=== PATIENT | male | born 1980 | race Caucasian/White ===

== ENCOUNTER 2020-05-31 07:54 | Outpatient (REF) | payer OTHER, SELFPAY ==
[2020-05-31 08:46] LABS: COVID-19 Test Negative (Negative)
== END 2020-05-31 07:55 | disposition home or self-care (01) ==
LOC: HO.LAB 07:54
PROVIDERS: Visit Provider Internal Medicine
DX: Z20.822 Contact with and (suspected) exposure to COVID-19 (principal)
CPT/HCPCS: 36415; 87635; C9803

== ENCOUNTER 2020-06-08 10:24 | Emergency (ER) | payer OTHER, SELFPAY ==
[2020-06-08 10:51] VITALS: BP 147/91; PULSE 92; RESP 16; TEMP 36.9; O2SAT 97; BMI 23.3
--- NOTE | 2020-06-08 11:01 | ED_ITS ---
HPI - General Adult General Chief complaint: General Medical Stated complaint: covid exposed - fever Time Seen by Provider: 06/08/20 10:36 Source: patient Mode of arrival: ambulatory Limitations: no limitations History of Present Illness HPI narrative: 39 yo male with past medical history of CHELE, sinusitis, HTN, asthma here with complaints of sinus pressure/pain, nasal drainage which is yellow/green, fever with max temp 101F, right upper dental pain, headache x 3 days. No cough, shortness breath, chest pain, abdominal pain, vomiting or diarrhea. Both parents at home are COVID positive Related Data Home Medications Medication Instructions Recorded Confirmed albuterol sulfate 90 mcg/actuation 2 puff INHALATION Q6H PRN 02/16/20 03/24/20 aerosol inhaler Previous Rx's Medication Instructions Recorded acetaminophen 325 mg capsule 650 mg PO Q6H PRN 15 Days #60 cap 03/24/20 amoxicillin 875 mg-potassium 1 tab PO Q12H 10 Days #20 tab 03/24/20 clavulanate 125 mg tablet fexofenadine 60 mg tablet 60 mg PO BID PRN 30 Days #60 tab 03/24/20 fluticasone propionate 50 1 spray INTRANASAL DAILY 30 Days 03/24/20 mcg/actuation nasal #16 g spray,suspension citalopram 20 mg tablet 20 mg PO DAILY 30 Days #30 tab 04/13/20 amitriptyline 50 mg tablet 50 mg PO DAILY #90 cap 04/17/20 lorazepam 1 mg tablet 1 mg PO DAILY PRN 14 Days #14 tab 04/17/20 amlodipine 5 mg tablet 5 mg PO DAILY 90 Days #90 tab 05/26/20 albuterol sulfate 90 mcg/actuation 2 puff PO Q6H #8.5 cap 05/29/20 aerosol inhaler azithromycin See Rx Instructions .ROUTE 06/08/20 .COMPLEX #6 tab Allergies Allergy/AdvReac Type Severity Reaction Status Date / Time ciprofloxacin [From CIPRO] Allergy Severe ANXIETY, Unverified 11/04/19 15:22 INSOMNIA, CONSTIPATION, panic attacks sumatriptan [From IMITREX] Allergy Severe HALLUCINATIONS, Unverified 11/04/19 1 5:22 BACK TIGHTENS Review of Systems Review of Systems: Yes all other systems are reviewed and are negative Constitutional: Constitutional: Reports no additional constitutional complaints, Denies body ache(s), Denies chills, Reports fever(s), Reports headache(s) and Denies weakness Eyes: Eyes: Reports no additional eye complaints and Denies change in vision ENT: Reports system reviewed and no additional complaints, except as documented, Denies dizziness, Reports headache(s), Reports mouth pain, Denies nasal congestion, Reports nasal discharge, Denies neck pain, Reports sinus pain and Reports sinus pressure Cardiovascular: Cardiovascular: Reports no additional cardiovascular complaints, Denies chest pain, Denies leg edema and Denies dyspnea Respiratory: Respiratory: Reports no additional respiratory complaints, Denies cough and Denies dyspnea Gastrointestinal: Gastrointestinal: Reports no additional gastrointestinal complaints, Denies abdominal pain, Denies diarrhea, Denies nausea and Denies vomiting Genitourinary: Genitourinary: Denies urinary incontinence Musculoskeletal: Musculoskeletal: Reports no additional musculoskeletal complaints, Denies back pain, Denies arthralgias, Denies joint swelling, Denies neck pain, Denies numbness and Denies tingling Integumentary/Breasts: Skin/Breast: Reports system reviewed and no additional complaints, except as docu and Denies rash Neurologic: Reports system reviewed and no additional complaints, except as documented, Denies Abnormal speech present, Denies dizziness, Reports headache(s), Denies numbness, Denies tingling and Denies weakness PMFSH Past Medical History Attestation statement: The following information was validated with the patient. Source: old records reviewed and nursing notes reviewed Medical History Sinusitis Family History Family History Mother Asthma Father No problems noted. Social History Social History Alcohol intake: never Smoking Status: Never smoker Use of substances other than those prescribed or required for medical reasons: No Advance Directives: Yes Advance Directives Information Provided: No Advance Directives on File: No Physical Exam Vital Signs: Vital Signs: Last Vital Signs Temp 98.5 F 06/08/20 10:51 Pulse 92 06/08/20 10:51 Resp 16 06/08/20 10:51 BP 147/91 H 06/08/20 10:51 Pulse Ox 97 06/08/20 10:51 Body Mass Index 23.3 Const: General: cooperative, healthy appearing, comfortable and no acute distress Orientation/consciousness: patient oriented x3 Limitations: no limitations HENMT: Head: Yes normal to inspection Ears: hearing grossly normal bilaterally and TM's normal bilaterally General nose exam: Normal external nose present Face and sinus: Yes normal facial exam Mouth: Normal oral and palatal mucosa present Teeth and gingiva: other (Extensive dental caries. There is no abscess/fluctuance/induration noted) Throat: Yes posterior oropharynx normal Eyes: General: appearance normal, both eyes and all related structures Pupils: Equal, round and reactive pupils present Neck: Neck: Yes normal visual inspection, Yes full ROM, Yes no lymphadenopathy and Yes no meningeal signs Chest: Chest palpation & inspection: normal inspection of the chest Resp: Effort & Inspection: normal respiratory effort Auscultation: clear to auscultation bilaterally Cardio: Rate: regular rate Rhythm: regular rhythm Peripheral pulses: Peripheral pulses 2+ throughout GI: Inspection: Yes normal to inspection Palpation (GI): Soft to palpation and nontender Auscultation: normal bowel sounds Back/Spine/Pelvis: Thoracic/Lumbar Spine: thoracic and lumbar spine normal to inspection Skin: General skin exam: no rashes or lesions noted Neuro: General: patient oriented x3, no meningeal signs, no focal motor deficits and normal sensation to monofilament Cranial nerves: Yes Equal, round and reactive pupils present Cognition (Neuro): normal cognition Speech: No Abnormal speech present Gait exam (Neuro): Normal gait present Motor exam (neuro): 5/5 motor strength present throughout Extrem: General: Yes normal to inspection, Yes no pedal edema and Yes no calf tenderness Course Course Course Narrative: 39-year-old male here with complaints of fever, sinus pressure and pain, nasal congestion, toothache, headache times several days. No known COVID exposure at home. Will need COVID testing 1130-. COVID positive. hemodynamically stable. Afebrile well-appearing here. Stable saturations greater than 98%. Exam is consistent with a sinusitis so will treat with course of antibiotics. Reviewed worrisome signs and symptoms of when to return to the emergency department. Comfortable discharge home. Medical Decision Making Medical Records Medical records reviewed: Yes I reviewed the patient's medical records. Lab Data Lab results reviewed: Yes I reviewed the patient's lab results. Labs: Lab Results 06/08/20 Range/Units 11:10 COVID-19 ([facility]) Positive A (Negative) COVID-19 Clin Com See Note Discharge Plan Discharge Clinical Impression: COVID-19, Sinusitis Patient Disposition: Home, Self-Care Instructions: Sinusitis (ED), COVID-19 (Coronavirus Disease 2019) (ED) Additional Instructions: Increase fluids, rest You tested positive for COVID-19. Per the cdc you need to quarantine for 10 days and your symptoms must be resolved for 24 hours before leaving her quarantine Take Motrin or Tylenol if able as needed for pain or fever Prescriptions: New azithromycin 250 mg tablet See Rx Instructions .ROUTE .COMPLEX Qty: 6 RF: 0 No Action albuterol sulfate 90 mcg/actuation HFA aerosol inhaler 2 puff inhalation Q6H PRNRF: 0 citalopram 20 mg tablet 20 mg PO DAILY 30 Days Qty: 30 RF: 0 lorazepam 1 mg tablet 1 mg PO DAILY PRN (Reason: anxiety) 14 Days Qty: 14 RF: 0 amitriptyline 50 mg tablet 50 mg PO DAILY Qty: 90 RF: 1 amlodipine 5 mg tablet 5 mg PO DAILY 90 Days Qty: 90 RF: 1 albuterol sulfate 90 mcg/actuation HFA aerosol inhaler 2 puff PO Q6H Qty: 8.5 RF: 3 fexofenadine [Brittni Allergy] 60 mg tablet 60 mg PO BID PRN (Reason: allergic symptoms) 30 Days Qty: 60 RF: 0 amoxicillin-pot clavulanate [Augmentin] 875-125 mg tablet 1 tab PO Q12H 10 Days Qty: 20 RF: 0 acetaminophen 325 mg capsule 650 mg PO Q6H PRN (Reason: fever or pain) 15 Days Qty: 60 RF: 0 fluticasone propionate 50 mcg/actuation spray,suspension 1 spray intranasal DAILY 30 Days Qty: 16 RF: 0 Referrals: Mckenna Subramanian NP [Primary Care Provider] - 2 days Interventions: ED Discharge Assessment Last Done: 06/08/20 11:43 Discharge Date/Time: 06/08/20 11:44
[2020-06-08 11:32] LABS: COVID-19 Test Positive (Negative)
== END 2020-06-08 11:44 | disposition home or self-care (01) ==
PROVIDERS: Nurse Practitioner Family; Emergency Provider Emergency Medicine; PCP Nurse Practitioner Family
DX: U07.1 COVID-19 (principal)
CPT/HCPCS: 36415; 87635; 99283

== ENCOUNTER 2020-12-01 18:21 | Outpatient (REF) | payer OTHER, SELFPAY ==
[2020-12-01 19:08] LABS: Influenza A PCR NEGATIVE (Negative); Influenza B PCR NEGATIVE (Negative); Resp Syncy Virus RNA Qual PCR NEGATIVE (Negative); SARS COV2 PCR INHOUSE NEGATIVE (Negative)
== END 2020-12-01 18:22 | disposition home or self-care (01) ==
LOC: HO.LNP 18:21
PROVIDERS: Visit Provider Family Medicine
DX: R09.89 Other specified symptoms and signs involving the circulatory and respiratory systems (principal); J32.9 Chronic sinusitis, unspecified; Z20.822 Contact with and (suspected) exposure to COVID-19
CPT/HCPCS: 0241U

== ENCOUNTER 2021-04-05 07:20 | Outpatient (REF) | payer OTHER, SELFPAY ==
--- NOTE | ~2021-04-05 | XR_ITS ---
EXAMINATION: XR HIP, RIGHT CLINICAL INFORMATION: Pain in the right hip COMPARISON: None TECHNIQUE: Two views of the right hip. FINDINGS: Alignment is normal. The femoral head is well-positioned within the intact acetabulum. The hip joint space is maintained. No evidence of proximal femoral fracture or osteonecrosis. Soft tissues are unremarkable. The visualized pelvic bones and visualized sacral joints are unremarkable. XR/XR hip RT min 2V IMPRESSION: Normal radiographic evaluation of the right hip.
[2021-04-05 07:41] LABS: MANUAL DIFF FLAG NO
[2021-04-05 08:51] LABS: Basophils Absolute Auto 0.1 X10*3/uL (0.0-0.2); Basophils Percent Auto 0.6 % (0-2); Eosinophils Absolute Auto 0.4 X10*3/uL (0.0-0.4); Eosinophils Percent Auto 4.6 % (0-4); Hemoglobin 15.5 g/dl (14.0-18.0); Imm Gran Abs Auto 0.02 X10*3/uL (0.00-0.03); Imm Gran Pct Auto 0.2 % (0.0-0.4); Lymphocytes Percent Auto 42.1 % (20-40); Mean Corpuscular Hemoglobin 30.8 pg (27.0-33.0); Mean Corpuscular Volume 85.5 fL (80.0-98.0); Monocytes Absolute Auto 0.6 X10*3/uL (0.1-1.2); Monocytes Percent Auto 5.9 % (2-11); Neutrophils Absolute Auto 4.5 x10*3/uL (2.0-8.3); Neutrophils Percent Auto 46.6 % (45-73); Platelet Count 312 X10*3/uL (160-400); Red Blood Count 5.03 X10*6/uL (4.60-5.80); Red Cell Distribution Width 11.8 % (11.0-16.0); White Blood Count 9.6 X10*3/uL (4.8-10.8)
[2021-04-05 08:56] LABS: Anion Gap 12 (12-20); Bilirubin Total 0.7 mg/dL (0.0-1.0); Blood Urea Nitrogen 13 mg/dL (9-16); Calcium 9.8 mg/dL (8.4-10.2); Carbon Dioxide 25 mmol/L (22-29); Chloride 104 mmol/L (96-108); Estimated Glomerular Filt Rate > 60; Glucose Fasting 92 mg/dL (60-99); Potassium 4.1 mmol/L (3.3-5.1); Sodium 137 mmol/L (135-145)
[2021-04-05 08:57] LABS: Alanine Aminotransferase 24 U/L (0-40); Albumin Level 4.5 g/dL (3.5-5.0); Alkaline Phosphatase 68 U/L (39-117); Aspartate Amino Transferase 20 U/L (5-37); Cholesterol 235 mg/dL; HDL Cholesterol 40 mg/dL; LDL Cholesterol Calculated 163 mg/dl; Total Protein 7.5 g/dL (6.5-8.0); Triglycerides 160 mg/dL
[2021-04-05 09:11] LABS: Thyroid Stimulating Hormone 1.93 uIU/mL (0.32-4.0)
[2021-04-05 09:19] LABS: TSH reflex Free T4 1.98 uIU/mL (0.32-4.0)
[2021-04-05 10:13] LABS: Appearance Urine CLEAR; Color Urine YELLOW; Glucose Urine UA NEG (NEG); Leukocyte Esterase Urine NEG (NEG); Nitrite Urine NEG (NEG); Specific Gravity - Urine 1.015 (1.005-1.025); Urine Blood NEG (NEG); Urine Ketones NEG (NEG); Urine Protein NEG (NEG-TRACE)
[2021-04-05 10:33] LABS: Microalbum/Creatinine Ratio Ur 7.3 ug/mg cr
== END 2021-04-05 07:21 | disposition home or self-care (01) ==
LOC: HO.XRAY 07:20
PROVIDERS: Internal Medicine; PCP Family Medicine; Visit Provider Family Medicine
DX: Z00.00 Encounter for general adult medical examination without abnormal findings (principal); I10 Essential (primary) hypertension; E03.9 Hypothyroidism, unspecified; M25.551 Pain in right hip
CPT/HCPCS: 36415; 73502; 80053; 80061; 81003; 82043; 84443; 85025

== ENCOUNTER 2021-05-22 14:00 | Outpatient (RCR) | payer OTHER, SELFPAY ==
--- NOTE | 2021-04-11 15:17 | MHC.PT.EP ---
[facility] [place] Office [place] Office [place] Office [address] Kareem Foster [address] [phone] F: [phone] F: [phone] F: [phone] F: [phone] Physical Therapy Plan of Care Date of Evaluation: Date of Surgery: NA Diagnosis: Assessment: Pt IS 40 YO M REFERRED TO PT FROM DR ROUSSEAU WITH R HIP PAIN S/P FALL ON ICE 3 WKS AGO. Pt REPORTS HX OF R HIP DISLOCATION IN 2016 WITH PT IN 2019 WITH RELIEF. Pt REPORTS LIMITED ADLS BECAUSE OF PAIN. PRESENTS TO PT AT THIS TIME WITH TIGHT HIP/LE MMS AND C/O SCIATIC TYPE SXS. SHOULD BENEFIT FROM PT TO ADDRESS THESE ISSUES AND HELP INCREASE STABILITY AT CORE AND HIPS. Frequency and Duration: The patient will be seen 2X/WK X 4 WKS Short Term Goals: 1. I HEP WITH DC EX PLAN 2. INCREASED AWARENESS POSTURE AND HIP CARE 3. CENTRALIZE SXS (LESS SCIATICA TYPE SXS R LE) Group Home Goals: 1. INCREASED HS FLEXIBLITY 5 DEGREES B 2. DECREASED DISCOMFORT WITH R HIP IR/ER 3. INCREASED ADLS WITH DECREASED R HIP PAIN AT LEAST 50% 4. IMPROVED LEFI (59/80 AT SOC) Treatment Plan: Modalities to reduce pain, spasms and effusion. Manual therapy to restore motion and function. Therapeutic exercise to improve strength and flexibility. Neuromuscular re-education for posture and balance. Therapeutic activities to return to functional activities of daily living. Electronically signed by: ESPERANZA MORTENSEN PT Please sign and return to therapist. Thank you for your referral.
--- NOTE | 2021-06-08 14:03 | MHC.PT.DC ---
[facility] [place] Office [place] Office [place] Office [address] Kareem Foster [address] [phone] F: [phone] F: [phone] F: [phone] F: [phone] Physical Therapy Discharge Report Diagnosis: Date of Surgery: NA Date of Evaluation: 04/11/21 Date of Discharge: 06/08/21 Treatments to Date: 5 Cancellations to Date: No Shows to Date: Discharge Status: Improved Function Independent with HEP Patient Elected to Stop Discharge Summary: Pt LAST SEEN ON 05/22/21 WITH ASSESSMENT THAT DAY PER MARIANA NARVAEZ PT, DPT Resolution of R sciatica series with implement prone extension series, pt expressing has been completing HEP a few times daily . Pt HAS BEGUN PT FOR CERVICALGIA. WILL DC THIS RECORD TO CONTINUE TO DOCUMENT FOR CERVICALGIA TREATMENT Electronically signed by: ESPERANZA MORTENSEN PT Please sign and return to therapist. Thank you for your referral.
== END 2021-06-08 14:05 | disposition home or self-care (01) ==
LOC: HO.PTWFD 14:00
PROVIDERS: PCP Family Medicine; Visit Provider Family Medicine
DX: M25.551 Pain in right hip (principal)
CPT/HCPCS: 97110; 97161; 97535

== ENCOUNTER 2021-08-01 14:00 | Outpatient (RCR) | payer OTHER, SELFPAY ==
[2021-05-31 13:51] VITALS: BP 120/80; PULSE 67; O2SAT 97
== END 2021-09-06 15:16 | disposition home or self-care (01) ==
LOC: HO.PTWFD 14:00
PROVIDERS: PCP Family Medicine; Visit Provider Family Medicine
DX: M54.2 Cervicalgia (principal)
CPT/HCPCS: 97014; 97110; 97140; 97161; 97535

== ENCOUNTER 2021-08-09 09:57 | Emergency (ER) | payer OTHER, SELFPAY ==
[2021-08-09 10:19] VITALS: BP 149/94; PULSE 92; RESP 16; TEMP 36.7; O2SAT 99; BMI 26.6
--- NOTE | 2021-08-09 11:00 | ED_ITS ---
HPI - General Adult General Chief complaint: General Medical Stated complaint: possible popped hemroid, rectal bleeding Time Seen by Provider: 08/09/21 10:57 Source: patient Mode of arrival: ambulatory Limitations: no limitations History of Present Illness HPI narrative: 40 y/o male with history of HTN, HLD, asthma, anxiety, migraines, & depression who presents to the ER with constipation and concern for hemorrhoids. He has been suffering from constipation for years. He reports for the last few days he has had to strain to have a bowel movement and last night tried to manually disimpact himself because he could feel that the stool was there to pass. He used a gloved finger to remove stool and he noticed there was mucusy blood on the glove. He also reported some blood when he wiped. No further bleeding since. He has intermittent abdominal cramping when he has the sensation to have a bowel movement. No nausea, vomiting or fevers. MD complaint: constipation & hemorrhoids Onset (ago): day(s) Location: abdomen and buttocks Radiation: non-radiation Severity: moderate Pain Consistency: intermittent Relieving factors: none Exacerbating factors: other (bowel movement) Associated symptoms: denies other symptoms Treatments prior to arrival: none Related Data Home Medications Medication Instructions Recorded Confirmed acetaminophen 325 mg tablet 0 mg PO 03/21/21 08/06/21 escitalopram oxalate 10 mg tablet 10 mg PO DAILY 03/21/21 08/06/21 ibuprofen 800 mg tablet 800 mg PO TID 03/21/21 08/06/21 clonidine HCl 0.1 mg tablet 0.1 mg PO .prn 05/07/21 08/06/21 quetiapine 50 mg tablet (Seroquel) 50 mg PO BEDTIME 05/07/21 08/06/21 lorazepam 0.5 mg tablet 0.5 mg PO BEDTIME 08/06/21 08/06/21 quetiapine 300 mg tablet,extended 300 mg PO BEDTIME 08/06/21 08/06/21 release 24 hr Previous Rx's Medication Instructions Recorded acetaminophen 325 mg capsule 650 mg PO Q6H PRN fever or pain 15 03/24/20 days #60 caps lorazepam 1 mg tablet 1 mg PO DAILY PRN anxiety 14 days 03/22/21 #14 tabs albuterol sulfate 90 mcg/actuation 2 puff PO Q6H #8.5 grams 05/07/21 aerosol inhaler azithromycin 250 mg tablet See Rx Instructions PO .COMPLEX 5 05/07/21 (Zithromax Z-Francisco) days #6 tabs fexofenadine 60 mg tablet (Brittni 60 mg PO BID allergic symptoms 90 05/07/21 Allergy) days #180 tabs fluticasone 250 mcg-salmeterol 50 1 inh inhalation Q12H 30 days #60 05/07/21 mcg/dose blistr powdr for ea inhalation (Advair Diskus) amlodipine 5 mg tablet 5 mg PO DAILY 90 days #90 tabs 05/16/21 fluticasone propionate 50 1 spray intranasal DAILY 30 days 05/16/21 mcg/actuation nasal #16 grams spray,suspension amitriptyline 75 mg tablet 75 mg PO BEDTIME #90 tabs 08/06/21 Allergies Allergy/AdvReac Type Severity Reaction Status Date / Time ciprofloxacin [From CIPRO] Allergy Severe ANXIETY, Verified 08/06/21 14:13 INSOMNIA, CONSTIPATION, panic attacks sumatriptan [From IMITREX] Allergy Severe HALLUCINATIONS, Verified 08/06/21 14:13 BACK TIGHTENS Review of Systems Review of Systems: Constitutional: No Fever, No Chills ENT/Mouth: No sore throat, No Rhinorrhea, No Swallowing Difficulty Cardiovascular: No Chest Pain, No SOB, No Orthopnea, No Edema Respiratory: No Cough, No Sputum, No Wheezing, No dyspnea Gastrointestinal: No Nausea, No Vomiting, No Diarrhea, No abdominal Pain, No Hematochezia, No Melena, +constipation Genitourinary: No Dysuria, No Urinary Frequency, No Hematuria Musculoskeletal: No joint pain, No Myalgias Skin: No Skin Lesions, No rash Neuro: No Weakness, No Numbness, No Dizziness, No Headache Psych: + Anxiety/Panic, No Depression Heme/Lymph: No Bruising, No Lymphadenopathy Endocrine: No Polyuria, No Polydipsia PMFSH Past Medical History Medical History Anxiety Depression Sinusitis Surgical History No pertinent past surgical history Family History Family History Mother Asthma Father No problems noted. Social History Social History Housing: House Alcohol intake: current Alcohol intake frequency: a few times a month Patient Tobacco Use Status: Never used Tobacco e-Cigarette/Vaping Use: Never Used Second Hand Smoke Exposure: No Advance Directives: No Advance Directives Information Provided: No service: No Current occupational status: disabled Current occupational exposures/hazards: No Cognitive needs: No Hearing needs: No Vision needs: No Physical Exam ED Vital Signs: Vital Signs - 24 hr 08/09/21 10:19 Temperature 98.1 F Pulse Rate 92 Respiratory Rate 16 Blood Pressure 149/94 H Pulse Oximetry 99 Oxygen Delivery Method Room Air BMI result Body Mass Index 26.6 Appearance: Alert. Oriented X3. No acute distress. Eyes: Pupils equal, round and reactive to light. ENT: Pharynx normal. Neck: Normal inspection. Neck supple. CVS: Normal heart rate and rhythm. Pulses normal. Respiratory: No respiratory distress. Breath sounds normal. Abdomen: Soft and nontender. +BS x4 Rectal: moderate sized, nontender, nonthrombosed external hemorrhoid. normal rectal tone. no stool in rectal vault. no palpable internal hemorrhoids Skin: Skin warm and dry. Normal skin color. Normal skin turgor. No rashes. Extremities: No lower extremity edema. Neuro: Oriented X 3. No motor deficit. No sensory deficit. Course Course Course Narrative: 40 year old male presents to the ER with acute on chronic constipation with non- bleeding hemorrhoids. Exam is benign, abd is soft & non-tender. No clinical suspicion for obstruction. No stool in rectal vault and hemorrhoid is nonthrombosed and not bleeding. Will treat with [place] dulcolax now, Mg++ citrate at home and follow up with GI. Stable for d/c home, patient agrees with plan and return precautions were discussed. Discharge Plan Discharge Clinical Impression: Constipation, Hemorrhoids Patient Disposition: Home, Self-Care Instructions: Constipation (ED), Hemorrhoids (ED), High Fiber Diet (ED) Additional Instructions: Drink the entire bottle of magnesium citrate when you get home. Recommend also starting the following bowel regimen (all found over the counter): 1. colace 100 mg two times per day 2. miralax 17 gm once per day, mix powder in any liquid 3. dulcolax suppositories as needed daily 4. preparation H topically on the hemorrhoid Recommend following up with GI doctor for further evaluation and treatment If you develop large amounts of rectal bleeding, abdominal pain, vomiting, fevers or any other concerning symptoms call 911 or come back to the ER for further evaluation. Prescriptions: No Action lorazepam 1 mg tablet 1 mg PO DAILY PRN (Reason: anxiety) 14 Days Qty: 14 0RF fluticasone propionate 50 mcg/actuation spray,suspension 1 spray intranasal DAILY 30 Days Qty: 16 3RF Rx Instructions: administer into each nostril amlodipine 5 mg tablet 5 mg PO DAILY 90 Days Qty: 90 1RF acetaminophen 325 mg capsule 650 mg PO Q6H PRN (Reason: fever or pain) 15 Days Qty: 60 0RF escitalopram oxalate 10 mg tablet 10 mg PO DAILY ibuprofen 800 mg tablet 800 mg PO TID acetaminophen 325 mg tablet 0 mg PO clonidine HCl 0.1 mg tablet 0.1 mg PO .prn quetiapine [Seroquel] 50 mg tablet 50 mg PO BEDTIME azithromycin [Zithromax Z-Francisco] 250 mg tablet See Rx Instructions PO .COMPLEX 5 Days Qty: 6 0RF Rx Instructions: take 500 mg today (day 1), then 250 mg for 4 days (days 2-5) PO fexofenadine [Brittni Allergy] 60 mg tablet 60 mg PO BID 90 Days Qty: 180 1RF fluticasone propion-salmeterol [Advair Diskus] 250-50 mcg/dose blister with device 1 inh inhalation Q12H 30 Days Qty: 60 4RF albuterol sulfate 90 mcg/actuation HFA aerosol inhaler 2 puff PO Q6H Qty: 8.5 3RF lorazepam 0.5 mg tablet 0.5 mg PO BEDTIME quetiapine 300 mg tablet extended release 24 hr 300 mg PO BEDTIME amitriptyline 75 mg tablet 75 mg PO BEDTIME Qty: 90 1RF Referrals: Lina Reyes MD [Physician] - (constipation)
[2021-08-09] MEDS: Docusate Sodium 100 MG CAPSULE PO (11:38)
[2021-08-09] MEDS: bisacodyL 10 MG SUPP.RECT PR (11:38)
[2021-08-09] MEDS: Magnesium Citrate 300 ML SOLUTION PO (11:38)
== END 2021-08-09 11:40 | disposition home or self-care (01) ==
PROVIDERS: Emergency Provider Student in an Organized Health Care Education/Training Program; PCP Family Medicine
DX: K59.09 Other constipation (principal); K64.9 Unspecified hemorrhoids; I10 Essential (primary) hypertension; J45.909 Unspecified asthma, uncomplicated
CPT/HCPCS: 99282; 99283

== ENCOUNTER 2021-10-18 08:47 | Outpatient (REF) | payer OTHER, SELFPAY ==
[2021-10-18 12:18] LABS: Cholesterol 238 mg/dL; HDL Cholesterol 43 mg/dL; LDL Cholesterol Calculated 150 mg/dl; Triglycerides 228 mg/dL
== END 2021-10-18 08:48 | disposition home or self-care (01) ==
LOC: HO.WFDLDS 08:47
PROVIDERS: Visit Provider Family Medicine
DX: Z00.00 Encounter for general adult medical examination without abnormal findings (principal); M54.2 Cervicalgia
CPT/HCPCS: 36415; 80061

== ENCOUNTER → 2021-12-04 14:19 | Outpatient (BNVA) | payer OTHER, SELFPAY | PROVIDERS: PCP Family Medicine; Referring Provider Family Medicine; Visit Provider Physician Assistant | DX: K59.09 Other constipation (principal); K64.9 Unspecified hemorrhoids | CPT/HCPCS: 99202; 99212 ==

== ENCOUNTER → 2022-01-29 14:21 | Outpatient (BNVA) | payer OTHER, SELFPAY | PROVIDERS: PCP Family Medicine; Visit Provider Physician Assistant | DX: K64.9 Unspecified hemorrhoids (principal); K59.09 Other constipation | CPT/HCPCS: 99212 ==

== ENCOUNTER → 2022-02-27 12:47 | Outpatient (BNVA) | payer OTHER, SELFPAY | PROVIDERS: PCP Family Medicine; Referring Provider Physician Assistant; Visit Provider Surgery | DX: K64.8 Other hemorrhoids (principal) | CPT/HCPCS: 46600; 99202 ==

== ENCOUNTER 2022-09-10 10:57 | Outpatient (REF) | payer OTHER, SELFPAY ==
[2022-09-10 20:11] LABS: Cholesterol 230 mg/dL; HDL Cholesterol 40 mg/dL; LDL Cholesterol Calculated 144 mg/dl; Triglycerides 230 mg/dL
== END 2022-09-10 10:58 | disposition home or self-care (01) ==
LOC: HO.WFDLDS 10:57
PROVIDERS: Visit Provider Family Medicine
DX: Z00.00 Encounter for general adult medical examination without abnormal findings (principal); E78.5 Hyperlipidemia, unspecified
CPT/HCPCS: 36415; 80061

== ENCOUNTER 2022-09-11 16:07 | Outpatient (AMB) | payer OTHER, SELFPAY ==
[2022-09-11 16:11] VITALS: BP 124/70; PULSE 98; RESP 12; TEMP 36.8; O2SAT 99; BMI 27.0
--- NOTE | 2022-09-11 16:11 | A.OFFPC_ITS ---
Vital Signs 09/11/22 16:11 Height 5 ft 9 in Weight 183 lb BMI 27.0 BP 124/70 Blood Pressure Location Lt brachial Position Sitting Respiration 12 Pulse 98 Pulse Source Pulse Oximeter Temp 98.3 F Temp Source Temporal Artery Scan Pulse Oximetry (%) 99 Oxygen Delivery Method Room Air Intake Visit Reasons: Medication Follow Up Intake Note: Patient would like to lower Amitriptyline. Patient needs a refill on his Albuterol, and Amitriptyline. Hourly Team Members Required: No Accompanied by: Mother Allergies ciprofloxacin [From CIPRO] Allergy (Severe, Verified 09/11/22 16:18) ANXIETY, INSOMNIA, CONSTIPATION, panic attacks sumatriptan [From IMITREX] Allergy (Severe, Verified 09/11/22 16:18) HALLUCINATIONS, BACK TIGHTENS lurasidone [From Latuda] Adverse Reaction (Severe, Verified 09/11/22 16:18) Suicidal Thoughts Tobacco use date assessed: 09/11/22 Dental Screening Dental Screen Date: 09/11/22 Did you have a dental visit in the last 12 months?: No Did you have a dental problem in the last 6 months where you did not have access to dental care?: Yes Was dental information given to patient?: Patient has dentist HPI HPI Comments History of Present Illness Details 41-year-old male, accompanied with his mother, presents for medication management. He notes he has been taking his medications as prescribed. He last time he saw his PCP was in 10/2021. He states he sees a therapist weekly and that his psychotropic medications are managed by a psychiatrist. He states that he is followed by a medication provider every 2 weeks; the medication provider is the intermediary between the patient and his psychiatrist; he has an appointment with him next week. He reports increased anxiety and depression symptoms. He attributes his symptoms to financial troubles. He reports SI with Latuda and is currently being tapered off. He has a positive response to the PHQ-9 question regarding Thoughts that you would be better off or of hurting yourself in some way. He states that It would make things easier because i wouldn't be dealing with the depression and everything that comes with that. He denies current SI/HI, denies plans of committing suicide, and contracts for safety. He states that he would like to lower his Amitriptyline dose from 70 mg to 50mg d/t feeling of fatigue. Patient would like to lower Amitriptyline. Patient needs a refill on his Albuterol, and Amitriptyline. [facility] Medical History Anxiety Depression Hemorrhoids with complication Sinusitis Surgical History No pertinent past surgical history Family History Mother Asthma Father No problems noted. Brother Skin cancer Social History Housing: House Alcohol intake: current Alcohol intake frequency: a few times a month Patient Tobacco Use Status: Never used Tobacco e-Cigarette/Vaping Use: Currently Using (THC VAPE) Second Hand Smoke Exposure: No service: No Current occupational status: disabled Current occupational exposures/hazards: No Cognitive needs: No Hearing needs: No Vision needs: No Questionnaire PHQ-9 Over the last 2 weeks, how often have you been bothered by any of the following problems? 1. Little interest or pleasure in doing things: nearly every day 2. Feeling down, depressed, or hopeless: nearly every day 3. Trouble falling or staying asleep, or sleeping too much: nearly every day 4. Feeling tired or having little energy: nearly every day 5. Poor appetite or overeating: nearly every day 6. Feeling bad about yourself - or that you are a failure or have let yourself or your family down: nearly every day 7. Trouble concentrating on things, such as reading the newspaper or watching television: nearly every day 8. Moving or speaking so slowly that other people could have noticed. Or the opposite - being so fidgety or restless that you have been moving around a lot more than usual: nearly every day 9. Thoughts that you would be better off or of hurting yourself in some way: more than half the days Total score: 26 Depression Screening Interpretation: Positive Depression Screening Follow-up: Existing condition, In treatment and Change in Medication Source: Developed by Drs. Samy Buckley, Jennifer Muñoz, Elvin Foster and colleagues, with an educational bernie from [employer]. Thrive Questionnaire Date Thrive assessed: 10/25/20 CHELE-7 AMB Questionnaire CHELE-7 Date CHELE - 7 assessed: 09/11/22 Feeling nervous, anxious, or on edge: 3 = Nearly every day Not being able to stop or control worryin = Nearly every day Worrying too much about different things: 3 = Nearly every day Trouble relaxin = Nearly every day Being so restless that it is hard to sit still: 2 = More than half the days Becoming easily annoyed or irritable: 3 = Nearly every day Feeling afraid as if something awful might happen: 2 = More than half the days Total CHELE-7 score (0-4 normal; 5-9 mild; 10-14 moderate; 15-21 severe): 19 Source: Developed by Drs. Samy Buckley, Jennifer Muñoz, Elvin Foster and colleagues, with an educational bernie from [employer]. Review of Systems Const Details: Const Denies chills, Reports fatigue, Denies fever(s), Denies headache(s) and Denies weakness ENT Denies dizziness and Denies headache(s) Card Denies chest pain, Denies lightheadedness, Denies dyspnea and Denies other (Palpitations) Resp Denies cough, Denies dyspnea, Denies wheezing and Denies other ( shortness of breath) GI Denies abdominal pain, Denies melena, Denies hematochezia, Denies change in bowel habits, Denies dyspepsia and Denies nausea Denies hematuria and Denies dysuria Musc Denies abnormal gait, Denies myalgias, Denies arthralgias, Denies numbness and Denies tingling Skin/Breast Denies rash, Denies unusual bruising and Denies wounds Neuro Denies abnormal gait, Denies dizziness, Denies headache(s), Denies memory loss, Denies numbness, Denies Sensory deficit (Neuro), Denies tingling and Denies weakness Psych Reports anxiety and Reports depression, denies memory loss Endo Reports fatigue Aller/Immun Denies wheezing Physical exam (Primary Care) Vital Signs: Last Vital Signs Temp 98.3 F 09/11/22 16:11 Pulse 98 09/11/22 16:11 Resp 12 09/11/22 16:11 BP 124/70 09/11/22 16:11 Pulse Ox 99 09/11/22 16:11 Oxygen Delivery Method Room Air 09/11/22 16:11 BMI result Body Mass Index 27.0 Tobacco/Smoking Status: Tobacco use Status Tobacco use date assessed 09/11/22 09/11/22 16:32 Patient Tobacco Use Status Never used Tobacco 09/11/22 16:20 e-Cigarette/Vaping Use Currently Using (THC VAPE) 09/11/22 16:32 PHQ-9: PHQ-9 Score PHQ-9: Total score 09/11/22 17:08 Depression Screening Interpretation: Positive Depression Screening Follow-up: Existing condition, In treatment and Change in Medication Thrive Assessment: Date of Thrive Assessment Date Thrive assessed 10/25/20 09/11/22 16:20 Const Other: General: no acute distress and well developed Nutritional Appearance: well nourished Orientation/consciousness: patient oriented x3 HENMT Head: Yes normocephalic and Yes atraumatic Eyes General: appearance normal, both eyes and all related structures Pupils: Equal, round and reactive pupils present EOM: EOMs intact bilaterally Resp Effort & Inspection: normal respiratory effort Auscultation: clear to auscultation bilaterally Cardio Rate: regular rate Rhythm: regular rhythm Heart sounds: S1 normal heart sound present, S2 normal heart sound present, no gallops, no murmurs and no rubs GI Palpation (GI): No Abdominal aortic bruit present, Soft to palpation, nontender, No hepatosplenomegaly present and No Rebound tenderness present Auscultation: normal bowel sounds General: Yes no CVA tenderness Back/Spine/Pelvis Back: no CVA tenderness Cervical Spine: cervical ROM normal and No Cervical spine tenderness Thoracic/Lumbar Spine: thoraco-lumbar ROM normal, No pain with thoraco-lumbar ROM, No thoracic spinal tenderness and No lumbar spinal tenderness Extrem General: Yes normal to inspection, No edema and No calf tenderness Skin General: warm and dry. Normal skin color. Normal skin turgor Lesions: no lesions Rashes: no rashes Trauma: no lacerations or abrasions Wounds: no wounds Nails: normal Neuro General: patient oriented x3, gait normal and no focal neuro deficit Cranial nerves: Yes Equal, round and reactive pupils present Cognition (Neuro): normal cognition Gait exam (Neuro): Normal gait present Sensory Exam: No Sensory deficit (Neuro) Psych Appearance: grossly normal Affect: normal affect Attitude: cooperative Thought process: Normal thought process present Assessment and Plan Assessment & Plan (1) Anxiety and depression: Code(s): F41.9 - Anxiety disorder, unspecified; F32.A - Depression, unspecified Plan: PHQ-9 and CHELE-7 scores revealed severe anxiety and depression Ordered amitriptyline 50 mg daily. Take as prescribed Continue to take Lexapro, lamotrigine, lurasidone, ativan, and quetiapine as prescribed Routine exercise encouraged Follow-up with therapist, psychiatrist, and medication provider as planned Follow-up with PCP for health maintenance and blood work to rule out organic cause Return sooner with worsening or new symptoms Verbalized understanding and agreed with treatment plan. (2) Fatigue: Code(s): R53.83 - Other fatigue Plan: As above (3) Hyperlipidemia: Code(s): E78.5 - Hyperlipidemia, unspecified Plan: Recent lab results reviewed with patient Triglyceride, total cholesterol, and LDL continues to be elevated. HDL is normal Advised to limit foods high in saturated fat and avoid foods high trans fat Routine exercise encouraged Follow-up with PCP Verbalized understanding and agreed with treatment plan. Medications: Changed From amitriptyline 50 mg PO DAILY To amitriptyline 50 mg PO DAILY 90 days 90 tabs 0RF Refilled albuterol sulfate 90 mcg/actuation 2 puffs PO Q6H 8.5 grams 0RF J45.909 - Unspecified asthma, uncomplicated Coding Level of Care Code Est Pt Level 3 (52661) Diagnoses Anxiety and depression F41.9; F32.A Fatigue R53.83 Hyperlipidemia E78.5 Time Spent (min) 25
== END 2022-09-11 16:59 | disposition home or self-care (01) ==
PROVIDERS: PCP Family Medicine; Visit Provider Nurse Practitioner Family
DX: F41.9 Anxiety disorder, unspecified (principal); F32.A Depression, unspecified; R53.83 Other fatigue; E78.5 Hyperlipidemia, unspecified
CPT/HCPCS: 99213

== ENCOUNTER 2023-01-24 11:35 | Outpatient (AMB) | payer OTHER, SELFPAY ==
[2023-01-24 11:52] VITALS: BP 140/84; PULSE 104; TEMP 36.8; O2SAT 96; BMI 29.4
--- NOTE | 2023-01-24 11:52 | MHC.PC.OV ---
Vital Signs 01/24/23 11:52 Height 5 ft 9 in Weight 199 lb 6 oz BMI 29.4 BP 140/84 H Blood Pressure Location Lt brachial Position Sitting Pulse 104 H Pulse Source Pulse Oximeter Temp 98.2 F Temp Source Oral Pulse Oximetry (%) 96 Oxygen Delivery Method Room Air Oxygen Flow Rate 98.2 Intake Visit Reasons: f/u HTN, anxiety/depression, see comments Intake Note: Patient is here for med refills, and is developing chest cough, tested 2 times for Covid, came out negative. Pateint is requesting refills of his asthma meds, Amitriptiline, and Amlodipine. Allergies ciprofloxacin [From CIPRO] Allergy (Severe, Verified 01/24/23 11:56) ANXIETY, INSOMNIA, CONSTIPATION, panic attacks sumatriptan [From IMITREX] Allergy (Severe, Verified 01/24/23 11:56) HALLUCINATIONS, BACK TIGHTENS lurasidone [From Latuda] Adverse Reaction (Severe, Verified 01/24/23 11:56) Suicidal Thoughts Medication List - Last Reconciled 01/24/23 by Patrick Haq MD albuterol sulfate 90 mcg/actuation 2 puffs PO Q6H amitriptyline 50 mg PO DAILY 90 days amlodipine 5 mg PO DAILY bisacodyl (Dulcolax (bisacodyl)) 10 mg NV DAILY PRN docusate sodium (Colace) 200 mg (2 x 100 mg) PO BEDTIME escitalopram oxalate 5 mg PO DAILY fexofenadine (Brittni Allergy) 60 mg PO BID 90 days fluticasone propion-salmeterol 250-50 mcg/dose (Advair Diskus) 1 inh inhalation Q12H 30 days fluticasone propionate 50 mcg/actuation 1 spray intranasal DAILY 30 days hydrocortisone 2.5% (Proctozone-HC) 1 appl NV BID PRN ibuprofen 800 mg PO TID lamotrigine 300 mg PO DAILY lorazepam 0.5 mg PO BEDTIME polyethylene glycol 3350 (Miralax) 17 grams PO DAILY prazosin 1 mg PO BEDTIME zolpidem 5 mg PO BEDTIME Tobacco use date assessed: 01/24/23 Dental Screening Dental Screen Date: 01/24/23 Did you have a dental visit in the last 12 months?: No Did you have a dental problem in the last 6 months where you did not have access to dental care?: Yes Was dental information given to patient?: Patient has dentist HPI f/u HTN, anxiety/depression, see comments HPI Details 42 y/o male presents to f/u anxiety/depression and hypertension. He has complaints of chest congestion today. Blood pressure today 140/84, 104p. He is on amlodipine 5mg daily. He is on amitriptyline 50mg daily. He continues to see a therapist for his anxiety/depression and states this has been doing better. [facility] Medical History Hemorrhoids with complication Anxiety Depression Sinusitis Surgical History No pertinent past surgical history Family History Mother Asthma Father No problems noted. Brother Skin cancer Social History Housing: House Alcohol intake: current Alcohol intake frequency: a few times a month Patient Tobacco Use Status: Never used Tobacco e-Cigarette/Vaping Use: Former Use (THC VAPE) Second Hand Smoke Exposure: No service: No Current occupational status: disabled Current occupational exposures/hazards: No Cognitive needs: No Hearing needs: No Vision needs: No Questionnaire Thrive Questionnaire Date Thrive assessed: 10/25/20 CHELE-7 AMB Questionnaire CHELE-7 Date HCELE - 7 assessed: 09/11/22 Source: Developed by Drs. Samy Buckley, Jennifer Muñoz, Elvin Foster and colleagues, with an educational bernie from [employer]. ACT Questionnaire In the past 4 weeks, how much of the time did your asthma keep you from getting as much done at work, school or at home?: Some of the time During the past 4 weeks, how often have you had shortness of breath?: More than once a day During the past 4 weeks, how often did your asthma symptoms wake you up at night or earlier than usual in the morning?: Not at all During the past 4 weeks, how often have you had to use your rescue inhaler or nebulizer medication?: 2-3 times a week How would you rate your asthma control during the past 4 weeks?: Somewhat controlled ACT Interpretation: Positive Score: 15 Review of Systems Const Denies chills, Denies fatigue, Denies fever(s), Denies headache(s) and Denies weakness ENT Denies dizziness and Denies headache(s) Card Denies dyspnea Resp Denies cough, Denies dyspnea, Denies wheezing and Denies other (shortness of breath) Musc Denies numbness and Denies tingling Neuro Denies dizziness, Denies headache(s), Denies numbness, Denies tingling and Denies weakness Psych Denies anxiety and Denies depression Endo Denies fatigue Aller/Immun Denies wheezing Physical exam (Primary Care) Vital Signs: Last Vital Signs Temp 98.2 F 01/24/23 11:52 Pulse 104 H 01/24/23 11:52 BP 140/84 H 01/24/23 11:52 Pulse Ox 96 01/24/23 11:52 Oxygen Delivery Method Room Air 01/24/23 11:52 Oxygen Flow Rate 98.2 01/24/23 11:52 BMI result Body Mass Index 29.4 Tobacco/Smoking Status: Tobacco use Status Tobacco use date assessed 01/24/23 01/24/23 12:06 Patient Tobacco Use Status Never used Tobacco 01/24/23 12:06 e-Cigarette/Vaping Use Former Use (THC VAPE) 01/24/23 12:06 Thrive Assessment: Date of Thrive Assessment Date Thrive assessed 10/25/20 01/24/23 12:06 Const General: well developed; No acute distress Nutritional Appearance: well nourished Orientation/consciousness: patient oriented x3 HENMT Head: Yes normocephalic and Yes atraumatic Eyes General: appearance normal, both eyes and all related structures Pupils: Equal, round and reactive pupils present EOM: EOMs intact bilaterally Resp Effort & Inspection: normal respiratory effort Auscultation: clear to auscultation bilaterally Cardio Rate: regular rate Rhythm: regular rhythm Heart sounds: S1 normal heart sound present, S2 normal heart sound present, no gallops, no murmurs and no rubs Neuro General: patient oriented x3 and gait normal Cranial nerves: Yes Equal, round and reactive pupils present Psych Affect: normal affect Office Procedures Pulmonary Testing Pulmonary Testing Details: 1- 350 2- 460 3- 480 Best 480 All charges added?: Additional procedure code (CPT) needed Assessment and Plan Assessment & Plan (1) Anxiety and depression: Code(s): F41.9 - Anxiety disorder, unspecified; F32.A - Depression, unspecified Plan: Somewhat?improved. He?has?a?new?therapist We?discussed?using?some?metoprolol?which?may?help?with?his?anxiety?as?well?as?blood?pressure?and?tachycardia-see?below (2) HTN (hypertension): Code(s): I10 - Essential (primary) hypertension Plan: Blood?pressure?is?elevated He?is?on?amlodipine.??We?will?add?a?small?dose?of?metoprolol (3) Asthma: Code(s): J45.909 - Unspecified asthma, uncomplicated Plan: Patient?has?a?current?viral?illness.??He?notes?that?his?asthma?is?not?well?controlled?at?present?but?he?is?refills?on?his?medications?and?he?says?that?his?asthma?symptoms?were?not?frequent?prior?to?viral?illness. Refilled?medication (4) Viral illness: Code(s): B34.9 - Viral infection, unspecified Plan: Will?send?swab?to?rule?out?COVID/flu/RSV Lungs?are?clear?except?for?small?asthma?wheeze (5) Tachycardia: Code(s): R00.0 - Tachycardia, unspecified Orders: Orders Pulmonary Test/Procedure Today J45.909 - Unspecified asthma, uncomplicated Comprehensive [place]. Panel Fast Today F32.A - Depression, unspecified, F41.9 - Anxiety disorder, unspecified, Z00.00 - Encounter for general adult medical examination without abnormal findings Comprehensive [place]. Panel Today R53.83 - Other fatigue Lipid Panel Today E78.5 - Hyperlipidemia, unspecified, Z00.00 - Encounter for general adult medical examination without abnormal findings Testosterone, Free/Total Today R53.83 - Other fatigue Medications: New metoprolol succinate ER 25 mg (1/2 x 50 mg) PO Q12H 30 days 30 tabs 2RF R53.83 - Other fatigue Refilled amlodipine 5 mg PO DAILY 30 tabs 0RF I10 - Essential (primary) hypertension amitriptyline 50 mg PO DAILY 90 tabs 0RF 90 days R53.83 - Other fatigue albuterol sulfate 90 mcg/actuation 2 puffs PO Q6H 8.5 grams 0RF J45.909 - Unspecified asthma, uncomplicated Coding Level of Care Code Est Pt Level 4 (44283) Diagnoses Anxiety and depression F41.9; F32.A HTN (hypertension) I10 Asthma J45.909 Viral illness B34.9 Tachycardia R00.0
== END 2023-01-24 12:37 | disposition home or self-care (01) ==
PROVIDERS: PCP Family Medicine; Visit Provider Family Medicine
DX: F41.9 Anxiety disorder, unspecified (principal); F32.A Depression, unspecified; I10 Essential (primary) hypertension; J45.909 Unspecified asthma, uncomplicated; B34.9 Viral infection, unspecified; R00.0 Tachycardia, unspecified
CPT/HCPCS: 99214

== ENCOUNTER 2023-01-24 14:01 | Outpatient (REF) | payer OTHER, SELFPAY ==
[2023-01-24 15:07] LABS: Influenza A PCR NEGATIVE (Negative); Influenza B PCR NEGATIVE (Negative); Resp Syncy Virus RNA Qual PCR NEGATIVE (Negative); SARS COV2 PCR INHOUSE NEGATIVE (Negative)
== END 2023-01-24 14:02 | disposition home or self-care (01) ==
LOC: HO.LNP 14:01
PROVIDERS: Visit Provider Family Medicine
DX: Z20.822 Contact with and (suspected) exposure to COVID-19 (principal)
CPT/HCPCS: 0241U

== ENCOUNTER 2023-05-29 13:30 | Outpatient (AMB) | payer OTHER, SELFPAY ==
[2023-05-29 13:34] VITALS: BP 132/70; PULSE 94; O2SAT 99; BMI 29.8
--- NOTE | 2023-05-29 13:34 | A.OFFPC_ITS ---
Vital Signs 05/29/23 13:34 Height 5 ft 9 in Weight 202 lb BMI 29.8 BP 132/70 Blood Pressure Location Lt brachial Position Sitting Pulse 94 Pulse Source Pulse Oximeter Pulse Oximetry (%) 99 Oxygen Delivery Method Room Air Intake Visit Reasons: Med appointment Intake Note: Patient is here for refills on Amitriptoline, and Amlodipine today. Allergies ciprofloxacin [From CIPRO] Allergy (Severe, Verified 05/29/23 13:35) ANXIETY, INSOMNIA, CONSTIPATION, panic attacks sumatriptan [From IMITREX] Allergy (Severe, Verified 05/29/23 13:35) HALLUCINATIONS, BACK TIGHTENS lurasidone [From Latuda] Adverse Reaction (Severe, Verified 05/29/23 13:35) Suicidal Thoughts Medication List - Last Reconciled 05/29/23 by Patrick Haq MD albuterol sulfate 90 mcg/actuation 2 puffs PO Q6H amitriptyline 50 mg PO DAILY 90 days amlodipine 5 mg PO DAILY bisacodyl (Dulcolax (bisacodyl)) 10 mg MO DAILY PRN docusate sodium (Colace) 200 mg (2 x 100 mg) PO BEDTIME escitalopram oxalate 5 mg PO DAILY fexofenadine (Brittni Allergy) 60 mg PO BID 90 days fluticasone propion-salmeterol 250-50 mcg/dose (Advair Diskus) 1 inh inhalation Q12H 30 days fluticasone propionate 50 mcg/actuation 1 spray intranasal DAILY 30 days hydrocortisone 2.5% 1 appl MO BID PRN ibuprofen 800 mg PO TID lamotrigine 300 mg PO DAILY lorazepam 0.5 mg PO BEDTIME metoprolol succinate ER 25 mg (1/2 x 50 mg) PO Q12H 30 days polyethylene glycol 3350 (Miralax) 17 grams PO DAILY prazosin 1 mg PO BEDTIME zolpidem 5 mg PO BEDTIME Tobacco use date assessed: 05/29/23 Dental Screening Dental Screen Date: 05/29/23 Did you have a dental visit in the last 12 months?: No Did you have a dental problem in the last 6 months where you did not have access to dental care?: No Was dental information given to patient?: Patient declined HPI Med appointment HPI Details 42 y/o male presents to f/u hypertension and depression/anxiety. Had added a small dose of metoprolol last office visit which may help with blood pressure, tachycardia and anxiety. Blood pressure today 132/70. He is on metoprolol 25mg, amlodipine 5mg daily. Requests a refill of his amitriptyline and amlodipine. He notes he also uses amitriptyline for migraines. [facility] Medical History Hemorrhoids with complication Anxiety Depression Sinusitis Surgical History No pertinent past surgical history Family History Mother Asthma Father No problems noted. Brother Skin cancer Social History Housing: House Alcohol intake: current Alcohol intake frequency: a few times a month Patient Tobacco Use Status: Never used Tobacco e-Cigarette/Vaping Use: Former Use (THC VAPE) Second Hand Smoke Exposure: No service: No Current occupational status: disabled Current occupational exposures/hazards: No Cognitive needs: No Hearing needs: No Vision needs: No Questionnaire PHQ-9 Over the last 2 weeks, how often have you been bothered by any of the following problems? 06060 - PHQ-9 Billing: Patient declined-do not bill Source: Developed by Drs. Samy Buckley, Elvin Silva and colleagues, with an educational bernie from [employer]. Thrive Questionnaire Date Thrive assessed: 10/25/20 CHELE-7 AMB Questionnaire CHELE-7 Date CHELE - 7 assessed: 05/29/23 Source: Developed by Drs. Samy Buckley, Elvin Silva and colleagues, with an educational bernie from [employer]. CHELE-7 Assessment Billing CHELE-7 Assessment Tool: pt declined-do not bill Review of Systems Const Denies chills, Denies fatigue, Denies fever(s), Denies headache(s) and Denies weakness ENT Denies dizziness and Denies headache(s) Card Denies chest pain, Denies lightheadedness, Denies dyspnea and Denies other (Palpitations) Resp Denies cough, Denies dyspnea, Denies wheezing and Denies other ( shortness of breath) Musc Denies numbness and Denies tingling Neuro Denies dizziness, Denies headache(s), Denies numbness, Denies tingling, Denies paresthesias and Denies weakness Psych Denies anxiety and Denies depression Endo Denies fatigue Aller/Immun Denies wheezing Physical exam (Primary Care) Vital Signs: Last Vital Signs Pulse 94 05/29/23 13:34 BP 132/70 05/29/23 13:34 Pulse Ox 99 05/29/23 13:34 Oxygen Delivery Method Room Air 05/29/23 13:34 BMI result Body Mass Index 29.8 Tobacco/Smoking Status: Tobacco use Status Tobacco use date assessed 05/29/23 05/29/23 13:40 Patient Tobacco Use Status Never used Tobacco 05/29/23 13:40 e-Cigarette/Vaping Use Former Use (THC VAPE) 05/29/23 13:40 Thrive Assessment: Date of Thrive Assessment Date Thrive assessed 10/25/20 05/29/23 13:40 Const General: no acute distress and well developed Nutritional Appearance: well nourished Orientation/consciousness: patient oriented x3 HENMT Head: Yes normocephalic and Yes atraumatic Eyes General: appearance normal, both eyes and all related structures Pupils: Equal, round and reactive pupils present EOM: EOMs intact bilaterally Resp Effort & Inspection: normal respiratory effort Auscultation: clear to auscultation bilaterally Cardio Rate: regular rate Rhythm: regular rhythm Heart sounds: S1 normal heart sound present, S2 normal heart sound present, no gallops, no murmurs and no rubs Neuro General: patient oriented x3 and gait normal Cranial nerves: Yes Equal, round and reactive pupils present Psych Affect: normal affect Assessment and Plan Assessment & Plan (1) HTN (hypertension): Code(s): I10 - Essential (primary) hypertension Plan: Blood?pressure?is?fairly?well?controlled?and?goal?is?less?than?140/90 Continue?current?medication?and?I?have?refilled?amlodipine (2) Anxiety and depression: Code(s): F41.9 - Anxiety disorder, unspecified; F32.A - Depression, unspecified Plan: Fairly?well?controlled?on?current?regimen?and?I?have?refilled?amitriptyline Continue?escitalopram?and?lamotrigine?as?well (3) Migraine: Code(s): G43.909 - Migraine, unspecified, not intractable, without status migrainosus Plan: Continue?amitriptyline?which?controls?his?migraine Orders: Orders Comprehensive [place]. Panel Fast Today Z00.00 - Encounter for general adult medical examination without abnormal findings Complete Blood Count Auto Diff Today Z00.00 - Encounter for general adult medical examination without abnormal findings Lipid Panel Today Z00.00 - Encounter for general adult medical examination without abnormal findings Microalbumin, Random (w Creat) Today I10 - Essential (primary) hypertension Prostate Specific Antigen Scr Today Z12.5 - Encounter for screening for malignant neoplasm of prostate TSH reflex Free T4 Today Z00.00 - Encounter for general adult medical examination without abnormal findings UA and rflx microscopic Today Z00.00 - Encounter for general adult medical examination without abnormal findings Vitamin D 25-OH Total Today E55.9 - Vitamin D deficiency, unspecified Medications: Changed From amlodipine 5 mg PO DAILY 30 tabs 0RF I10 - Essential (primary) hypertension To amlodipine 5 mg PO DAILY 90 days 90 tabs 2RF I10 - Essential (primary) hypertension Coding Level of Care Code Est Pt Level 3 (27690) Diagnoses HTN (hypertension) I10 Anxiety and depression F41.9; F32.A Migraine G43.909
== END 2023-05-29 14:02 | disposition home or self-care (01) ==
PROVIDERS: PCP Family Medicine; Visit Provider Family Medicine
DX: I10 Essential (primary) hypertension (principal); F41.9 Anxiety disorder, unspecified; F32.A Depression, unspecified; G43.909 Migraine, unspecified, not intractable, without status migrainosus
CPT/HCPCS: 99213

== ENCOUNTER 2023-12-18 13:21 | Outpatient (REF) | payer OTHER, SELFPAY ==
[2023-12-18 14:23] LABS: MANUAL DIFF FLAG NO
[2023-12-18 14:28] LABS: Basophils Absolute Auto 0.1 X10*3/uL (0.0-0.2); Basophils Percent Auto 0.7 % (0-2); Eosinophils Absolute Auto 0.6 X10*3/uL (0.0-0.4); Eosinophils Percent Auto 5.8 % (0-4); Hematocrit 43.1 % (42.0-52.0); Hemoglobin 15.5 g/dl (14.0-18.0); Imm Gran Abs Auto 0.03 X10*3/uL (0.00-0.03); Imm Gran Pct Auto 0.3 % (0.0-0.4); Lymphocytes Absolute Auto 3.5 X10*3/uL (1.2-4.9); Lymphocytes Percent Auto 35.3 % (20-40); Mean Corpuscular Hemoglobin 30.5 pg (27.0-33.0); Mean Corpuscular Volume 84.7 fL (80.0-98.0); Mean Platelet Volume 8.8 fL (9.4-12.4); Monocytes Absolute Auto 0.6 X10*3/uL (0.1-1.2); Monocytes Percent Auto 6.2 % (2-11); Neutrophils Absolute Auto 5.2 x10*3/uL (2.0-8.3); Neutrophils Percent Auto 51.7 % (45-73); Platelet Count 350 X10*3/uL (160-400); Red Blood Count 5.09 X10*6/uL (4.60-5.80); Red Cell Distribution Width 12.2 % (11.0-16.0)
[2023-12-18 16:10] LABS: Alanine Aminotransferase 48 U/L (0-40); Albumin Level 4.5 g/dL (3.5-5.0); Alkaline Phosphatase 66 U/L (39-117); Anion Gap 15 (12-20); Aspartate Amino Transferase 33 U/L (5-37); Bilirubin Total 0.9 mg/dL (0.0-1.0); Blood Urea Nitrogen 14 mg/dL (9-16); Calcium 9.4 mg/dL (8.4-10.2); Carbon Dioxide 23 mmol/L (22-29); Chloride 105 mmol/L (96-108); Cholesterol 258 mg/dL (<200); Estimated Glomerular Filt Rate > 60; Glucose Fasting 99 mg/dL (60-99); Glucose Random 99 mg/dL (60-115); HDL Cholesterol 41 mg/dL (>40); LDL Cholesterol Calculated 179 mg/dL (<100); Potassium 3.5 mmol/L (3.3-5.1); Sodium 139 mmol/L (135-145); Total Protein 7.4 g/dL (6.5-8.0); Triglycerides 192 mg/dL (<150)
[2023-12-18 16:17] LABS: Prostate Specific Antigen Scr 0.47 ng/mL (<0.05-4.0)
[2023-12-18 16:33] LABS: TSH reflex Free T4 1.21 uIU/mL (0.32-4.0)
[2023-12-18 18:12] LABS: Appearance Urine Clear; Color Urine Yellow; Glucose Urine UA Negative (Negative); Leukocyte Esterase Urine Negative (Negative); Nitrite Urine Negative (Negative); PH 6.5 (5.0-9.0); Specific Gravity - Urine 1.025 (1.005-1.025); Urine Blood Negative (Negative); Urine Ketones Negative (Negative); Urine Protein Trace mg/dL (Neg-Trace)
[2023-12-18 18:38] LABS: Creatinine Urine 204.37 mg/dL; Microalbum/Creatinine Ratio Ur 48.9 ug/mg cr (<30)
[2023-12-23 19:03] LABS: Testosterone, Free 64.8 pg/mL (35.0-155.0); Testosterone, Total 435 ng/dL (250-1100)
== END 2023-12-18 13:22 | disposition home or self-care (01) ==
LOC: HO.WFDLDS 13:21
PROVIDERS: Visit Provider Family Medicine
DX: Z00.00 Encounter for general adult medical examination without abnormal findings (principal); F41.9 Anxiety disorder, unspecified; F32.A Depression, unspecified; E78.5 Hyperlipidemia, unspecified; R53.83 Other fatigue; Z12.5 Encounter for screening for malignant neoplasm of prostate; E55.9 Vitamin D deficiency, unspecified; I10 Essential (primary) hypertension
CPT/HCPCS: 36415; 80053; 80061; 81003; 82043; 82306; 82570; 84153; 84402; 84403; 84443; 85025

== ENCOUNTER 2023-12-29 11:58 | Outpatient (AMB) | payer OTHER, SELFPAY ==
--- NOTE | 2023-12-29 12:00 | MHC.PC.OV ---
Vital Signs 12/29/23 12:03 12/29/23 12:24 Height 5 ft 9 in Weight 202 lb BMI 29.8 BP 148/98 H 122/74 Blood Pressure Location Rt brachial Rt radial Position Sitting Sitting Respiration 14 Pulse 100 Pulse Source Pulse Oximeter Pulse Oximetry (%) 97 Oxygen Delivery Method Room Air Intake Visit Reasons: Resched 12/21: CPE,f/u labs, health maintenance Intake Note: annual physical Mounter Smoking Pipe Required: No Allergies ciprofloxacin [From CIPRO] Allergy (Severe, Verified 12/29/23 12:11) ANXIETY, INSOMNIA, CONSTIPATION, panic attacks sumatriptan [From IMITREX] Allergy (Severe, Verified 12/29/23 12:11) HALLUCINATIONS, BACK TIGHTENS lurasidone [From Latuda] Adverse Reaction (Severe, Verified 12/29/23 12:11) Suicidal Thoughts Medication List - Last Reconciled 12/29/23 by Carrie De Santiago, [facility]- albuterol sulfate 90 mcg/actuation 2 puffs inhalation Q6H amitriptyline 50 mg PO DAILY 90 days amlodipine 5 mg PO DAILY 90 days bisacodyl (Dulcolax (bisacodyl)) [address] DAILY PRN docusate sodium (Colace) 200 mg (2 x 100 mg) PO BEDTIME escitalopram oxalate 5 mg PO DAILY fexofenadine (Brittni Allergy) 60 mg PO BID 90 days fluticasone propion-salmeterol 250-50 mcg/dose (Advair Diskus) 1 inh inhalation Q12H 30 days fluticasone propionate 50 mcg/actuation 1 spray intranasal DAILY 30 days hydrocortisone 2.5% [address] BID PRN ibuprofen 800 mg PO TID lamotrigine 300 mg PO DAILY lorazepam 0.5 mg PO BEDTIME metoprolol succinate ER 25 mg (1/2 x 50 mg) PO Q12H 30 days polyethylene glycol 3350 (Miralax) 17 grams PO DAILY prazosin 1 mg PO BEDTIME zolpidem 5 mg PO BEDTIME Tobacco use date assessed: 05/29/23 Dental Screening Dental Screen Date: 05/29/23 HPI HPI Comments History of Present Illness Details 43 y/o M with HTN, CHELE, MDD,Bipolar 2, migraines, seasonal allergies, Vit D def, HLD, asthma Health Maintenance: Tdap 2017 Declined flu Specialists: Pulm Counseling Optho Here today for CPE Patient of Dr Haq. Prior visit reviewed. Labs 12/18/23 Normal CBC, Elevated lipid profile, Vit D 18, normal TSH, Normal UA, mildly elevated urine micro/albim 48.9, PSA normal, Testosterone normal Pain in center L foot, new. Chest congestion for 6 weeks. Was seen and tx w/ AB and Steroids. This cleared his sx for 1-2 weeks. Returned. I do not have these records. Optho - wears glasses, last exam 2 years ago. Skin - no issues Has swelling of toes on right foot that come and go; painless; self limiting. No worse than previous. Plan: Offered and declined referral to nutrition. Declined lipid lowering medication. Will need to monitor & trend. Edu provided. Start Vitamin D3 50 mcg QD. Refer to Optho & Pulm Declined flu Would like to use @ home debrox for cerumen impaction. Declined in office Lavage. Cont all meds Repeat labs in 6 months, fasting, be sure to liberally hydrate to improve the mild microalbuminuria. RTO in [address] Lindsey, routine fu, sooner PRN Problem: CXR, treatment pending read. Pt will be called w/ results. Cont inhalers at this time. Advised to ask insurance if they will cover Nebulizer, if so, let me know and i can send. He has access to one now and reports his breathing is better when using this, ok to continue. Exercise/home treatment for plantar fas. reviewed w/ him today. If no improvement, can refer to podiatry. An additional 20 minutes was spent addressing the problem(s) noted at todays visit. This includes time spent before the visit reviewing the chart, time spent during the visit, and time spent after the visit on documentation [facility] Medical History Hemorrhoids with complication Anxiety Depression Sinusitis Surgical History No pertinent past surgical history Family History Mother Asthma Father No problems noted. Brother Skin cancer Social History Housing: House Alcohol intake: current Alcohol intake frequency: a few times a month Patient Tobacco Use Status: Never used Tobacco e-Cigarette/Vaping Use: Former Use (THC VAPE) Second Hand Smoke Exposure: No service: No Current occupational status: disabled Current occupational exposures/hazards: No Cognitive needs: No Hearing needs: No Vision needs: No Questionnaire PHQ-9 Over the last 2 weeks, how often have you been bothered by any of the following problems? 1. Little interest or pleasure in doing things: several days 2. Feeling down, depressed, or hopeless: several days 3. Trouble falling or staying asleep, or sleeping too much: several days 4. Feeling tired or having little energy: several days 5. Poor appetite or overeating: not at all 6. Feeling bad about yourself - or that you are a failure or have let yourself or your family down: several days 7. Trouble concentrating on things, such as reading the newspaper or watching television: not at all 8. Moving or speaking so slowly that other people could have noticed. Or the opposite - being so fidgety or restless that you have been moving around a lot more than usual: not at all 9. Thoughts that you would be better off or of hurting yourself in some way: not at all Total score: 5 Depression Screening Interpretation: Positive Depression Screening Follow-up: Existing condition and In treatment Depression Screening Done: Yes 95236 - PHQ-9 Billing: Yes Source: Developed by Drs. Samy Buckley, Jennifer Muñoz, Elvin Foster and colleagues, with an educational bernie from [employer]. Thrive Questionnaire Date Thrive assessed: 12/29/23 I am a: Patient What is your living situation today?: I have a steady place to live Within the past 12 months, did the food you bought not last and you didn't have the money to get more?: Sometimes True Within the past 12 months, did you worry whether your food would run out before you got money to buy more?: Sometimes True Do you have trouble paying for medicines?: No Do you have trouble getting transportation to medical appointments?: No Do you have trouble paying your heating and electricity bill?: No Do you have trouble taking care of your child, family member or friend?: No Do you have trouble with day-to-day activities such as bathing, preparing meals, shopping, managing finances, etc.?: No Are you currently unemployed and looking for a job?: I choose not to answer this question Are you interested in more education?: Yes Please select the resources that you would like help with: None Currently or been in a relationship where the following occur: No concerns reported THRIVE Score: 2 AUDIT C Alcohol Use Questionnaire (AUDIT-C) 1. How often do you have a drink containing alcohol?: Never 3. How often do you have six or more drinks on one occasion?: Never Total Score: 0 Score Reviewed/Action Taken: Yes CHELE-7 AMB Questionnaire CHELE-7 Date CHELE - 7 assessed: 12/29/23 Feeling nervous, anxious, or on edge: 1 = Several days Not being able to stop or control worryin = Several days Worrying too much about different things: 1 = Several days Trouble relaxin = Several days Being so restless that it is hard to sit still: 0 = Not at all Becoming easily annoyed or irritable: 1 = Several days Feeling afraid as if something awful might happen: 1 = Several days Total CHELE-7 score (0-4 normal; 5-9 mild; 10-14 moderate; 15-21 severe): 6 Source: Developed by Drs. Samy Buckley, Jennifer Muñoz, Elvin Foster and colleagues, with an educational bernie from [employer]. CHELE-7 Assessment Billing CHELE-7 Assessment Tool: CHELE-7 Assessment 04376 Review of Systems Const Details: Constitutional: Denies fever. Skin: Denies rash. Eye: Denies eye pain. ENMT: Denies sore throat and nasal congestion. Gastrointestinal: Denies nausea, vomiting or abdominal pain. Chronic constipation, controlled on current meds Cardiovascular: Denies chest pain and syncope. Genitourinary: Denies dysuria. Musculoskeletal: Denies back pain and extremity pain. Neurologic: Denies headaches, confusion, and weakness. Psychiatric: Denies suicidal thoughts and substance abuse. Mood stable on current meds Allergy/ Immunologic: Denies impaired immunity. Physical exam (Primary Care) Vital Signs: Last Vital Signs Pulse 100 12/29/23 12:03 Resp 14 12/29/23 12:03 BP 148/98 H 12/29/23 12:03 Pulse Ox 97 12/29/23 12:03 Oxygen Delivery Method Room Air 12/29/23 12:03 BMI result Body Mass Index 29.8 Tobacco/Smoking Status: Tobacco use Status Tobacco use date assessed 05/29/23 12/29/23 12:00 Patient Tobacco Use Status Never used Tobacco 12/29/23 12:00 e-Cigarette/Vaping Use Former Use (THC VAPE) 12/29/23 12:00 PHQ-9: PHQ-9 Score PHQ-9: Total score 5 12/29/23 12:00 Depression Screening Interpretation: Positive Depression Screening Follow-up: Existing condition and In treatment Thrive Assessment: Date of Thrive Assessment Date Thrive assessed 12/29/23 12/29/23 12:00 Currently or been in a relationship where the following occur: No concerns reported Const Other: General: Well developed, well nourished, in no acute distress. Appears stated age. Head: Normocephalic, atraumatic. Eyes: Pupils are equal, round and reactive to light and accommodation. Conjunctivae are clear. Vision grossly normal. Ears: cerumen impaction bilat Nose: Patent, without discharge. Mouth: There are no ulcers or lesions noted. No inflammation, no post nasal drip, no plaques nor exudates. Neck: Supple, no adenopathy or thyromegaly. Lungs: Coarse wheezing LLL, no improvement w/ deep breathing, hacking cough w/o distress, clear in other french Heart: Regular rate and rhythm. No murmurs, click, rubs or gallops are noted. Abdomen: Bowel sounds present in all quadrants. The abdomen is soft, nontender, with no masses or organomegaly noted. No hernias are noted. Musculoskeletal: Joints are nontender, without swelling, redness, or effusions. Range of motion is observed to be normal. Pulses: Peripheral pulses are equal and palpable bilaterally. Extremities: No clubbing, cyanosis nor edema is noted. Pain over L plantar fascia w/ palpation Neurologic: Gait and station normal. Cranial Nerves 2-12 intact. Motor strength grossly symmetrical and intact. No sensory loss. Balance normal. Skin: No rashes, ulcers, or lesions noted. Turgor is good. Skin color is good. Hair and nails are without abnormalities. Psych: Normal eye contact, affect and mood appropriate, and normal interactions. Patient is alert and appropriate to context. Coding Level of Care Code Est Pt Level 3 (24254) Est Pt Prev Care 40-64y(68859) Diagnoses Encounter for general adult medical examination with abnormal findings Z00.01 Moderate persistent asthma with acute exacerbation J45.41 Asthma severity: moderate Asthma persistence: persistent Asthma complication type: with acute exacerbation Blurred vision, bilateral H53.8 Plantar fasciitis of left foot M72.2 Anxiety and depression F41.9; F32.A Mixed hyperlipidemia E78.2 Hyperlipidemia type: mixed hyperlipidemia Vitamin D deficiency E55.9 Impacted cerumen, bilateral H61.23 Additional Codes CHELE-7 Assessment Billing - CHELE-7 Assessment Tool: CHELE-7 Assessment 77039 ([id number]) PHQ-9 - 06854 - PHQ-9 Billing: Yes ([id number]) Assessment & Plan Assessment & Plan (1) Encounter for general adult medical examination with abnormal findings: Code(s): Z00.01 - Encounter for general adult medical examination with abnormal findings Plan: . (2) Asthma: Code(s): J45.909 - Unspecified asthma, uncomplicated Category: Medical Qualifiers: Asthma severity: moderate Asthma persistence: persistent Asthma complication type: with acute exacerbation Qualified Code(s): J45.41 - Moderate persistent asthma with (acute) exacerbation Plan: .. (3) Blurred vision, bilateral: Code(s): H53.8 - Other visual disturbances Category: Medical Plan: . (4) Plantar fasciitis of left foot: Code(s): M72.2 - Plantar fascial fibromatosis Category: Medical Plan: . (5) Anxiety and depression: Code(s): F41.9 - Anxiety disorder, unspecified; F32.A - Depression, unspecified Category: Medical Plan: . (6) Hyperlipidemia: Code(s): E78.5 - Hyperlipidemia, unspecified Category: Medical Qualifiers: Hyperlipidemia type: mixed hyperlipidemia Qualified Code(s): E78.2 - Mixed hyperlipidemia Plan: . (7) Vitamin D deficiency: Code(s): E55.9 - Vitamin D deficiency, unspecified Category: Medical Plan: . (8) Impacted cerumen, bilateral: Code(s): H61.23 - Impacted cerumen, bilateral Plan: Earwax (Cerumen Impaction) Created in Ears Earwax, called cerumen, is produced by special wax-forming glands located in the skin of the outer one-third of the ear canal. It is normal to have cerumen in ear canal as this waxy substance serves as a self-cleaning agent with protective, lubricating, and antibacterial properties. The absence of earwax may result in dry, itchy ears. Self-cleaning means there is a slow and cert occupational therapy asst movement of earwax and skin cells from the eardrum to the ear opening. Old earwax is constantly being transported, assisted by chewing and jaw motion, from the ear canal to the ear opening where, most of the time, it dries, flakes, and falls out. What Are the Symptoms of an Earwax Blockage? Symptoms of an earwax problem may include: Earache Feeling of plugged hearing or fullness in the ear Partial hearing loss that gets worse Tinnitus, ringing, or noises in the ear Itching, odor, or discharge Coughing Pain Infection What Causes Earwax Blockage? When a patient has wax blockage against the eardrum, it is often because they have been probing the ear with such things as cotton-tipped swabs, marleny pins, or twisted napkin corners. These objects only push the wax in deeper in the ear canal. Why Is It Dangerous to Use Swabs to Remove Earwax? Wax blockage is one of the most common causes of hearing loss. This is often caused by attempts to clean the ear with cotton swabs. Most cleaning attempts merely push the wax deeper into the ear canal which is shaped like an hourglass, causing a blockage at the narrowing part of the ear canal. In addition, accidental trauma to the ear drum or ear bones can occur if the swab is pushed too deep. Good intentions to keep ears clean may lessen the ability to hear. The ear is a delicate and complicated body part, including the skin of the ear canal and the eardrum. Therefore, special care should be given to this part of the body. Discontinue the habit of inserting cotton-tipped swabs or other objects into the ear canals. What Are the Treatment Options? Cleaning a working ear can be done by washing it with a soft cloth, but do not insert anything into the ear. Ideally, the ear canals should never have to be cleaned. However, that isn?t always the case. The ears should be cleaned when enough earwax gathers to cause symptoms or to prevent a needed assessment of the ear by your doctor. This condition is call cerumen impaction. Most cases of ear wax blockage respond to home treatments used to soften wax. Patients can try placing a few drops of mineral oil, baby oil, glycerin, or commercial drops in the ear. Detergent drops such as hydrogen peroxide or carbamide peroxide (available in most pharmacies) may also aid in the removal of wax. Irrigation or ear syringing is commonly used for cleaning and can be performed by a physician or at home using a commercially available irrigation kit. Common solutions used for syringing include water and saline, which should be warmed to body temperature to prevent dizziness. Ear syringing is most effective when water, saline, or wax dissolving drops are put in the ear canal 15 to 30 minutes before treatment. Caution is advised to avoid having your ears irrigated if you have diabetes, a hole in the eardrum (perforation), tube in the eardrum, skin problems such as eczema in the ear canal or a weakened immune system. >> If you have been prescribed Debrox, use as directed for 5 nights and return to the office on Day 6 for an ear lavage to remove the wax<< Manual removal of earwax is also effective. This is most often performed by an ENT (ear, nose, and throat) specialist, or senior loss control specialist, using suction or special miniature instruments, and a microscope to magnify the ear canal. Manual removal is preferred if your ear canal is narrow, the eardrum has a perforation or tube, other methods have failed, or if you have skin problems affecting the ear canal, diabetes or a weakened immune system. When Should I Talk to a Doctor? If home treatments do not help, or if wax has accumulated so much that it blocks your ear canal and your ability to hear, an ENT specialist may prescribe eardrops designed to soften wax, or they may wash or vacuum it out. Your ENT specialist may also need to remove the wax under microscopic visualization. If there is a possibility of a perforation in the eardrum, consult a physician prior to trying any most-zbb-tjhzqfe remedies. Putting eardrops or other products in the ear with the presence of an eardrum perforation may cause pain or an infection. Washing water through such a hole could start an infection. If you are prone to repeated wax impaction or use hearing aids, consider seeing your doctor every six to 12 months for a checkup and routine preventive cleaning. What Questions Should I Ask My Doctor? What are the benefits and risks/side effects of different cerumen removal management options: earwax softening products, water irrigation vs. physical removal? Does cerumen accumulation vary with age, gender, familial or dietary intake? How do I manage swimming underwater with cerumen impaction? Should anything be done to the ears to prevent a buildup of earwax? How often should cerumen be removed from the ears? Are ear candles a safe option for removing earwax? Plan . Orders: Orders XR chest 2V Today F32.A - Depression, unspecified, F41.9 - Anxiety disorder, unspecified Lipid Panel 06/06/24 E55.9 - Vitamin D deficiency, unspecified, E78.5 - Hyperlipidemia, unspecified Microalbumin, Random (w Creat) 06/06/24 E55.9 - Vitamin D deficiency, unspecified, E78.5 - Hyperlipidemia, unspecified Vitamin D 25-OH Total 06/06/24 E55.9 - Vitamin D deficiency, unspecified, E78.5 - Hyperlipidemia, unspecified Referrals Pulmonology Referral J45.909 - Unspecified asthma, uncomplicated Ophthalmology Referral H53.8 - Other visual disturbances Medications: New cholecalciferol (vitamin D3) 50 mcg PO DAILY 90 caps 2RF Patient Instructions: To reduce low-density lipoprotein (LDL) cholesterol, you can try making lifestyle changes to your diet, exercise, and other habits: Eat a heart-healthy diet Limit saturated and trans fats, and eat more foods with healthy fats, like nuts, seeds, and unsaturated oils. You can also try eating more soluble fiber, which can help reduce the amount of cholesterol your body absorbs. Foods high in soluble fiber include whole grains, fruits, and legumes. Exercise regularly Aim for at least 150 minutes of exercise per week, such as walking, swimming, or cycling. Maintain a healthy weight Losing weight can help lower LDL cholesterol, especially if you are overweight or obese. Manage stress Chronic stress can raise LDL cholesterol, so try to find healthy ways to manage it. Quit smoking Smoking can raise cholesterol and increase the risk of serious health problems. Get enough sleep Aim for 7 to 9 hours of sleep per night. You should also limit foods with cholesterol, which are found in animal products like liver, egg yolks, and whole milk dairy products. Health screenings for men ages 40 to 64 You should visit your health care provider regularly, even if you feel healthy. The purpose of these visits is to: Screen for medical issues Assess your risk for future medical problems Encourage a healthy lifestyle Update vaccinations and other preventive care services Help you get to know your provider in case of an illness Information Even if you feel fine, you should still see your provider for regular checkups. These visits can help you avoid problems in the future. For example, the only way to find out if you have high blood pressure is to have it checked regularly. High blood sugar and high cholesterol level also may not have any symptoms in the early stages. Simple blood tests can check for these conditions. There are specific times when you should see your provider or receive specific health screenings. The [place] Preventive Services Task Force publishes a list of recommended screenings. Below are screening guidelines for men ages 40 to 64. BLOOD PRESSURE SCREENING Have your blood pressure checked at least once every year. Watch for blood pressure screenings in your area. Ask your provider if you can stop in to have your blood pressure checked. Ask your provider if you need your blood pressure checked more often if: You have diabetes, heart disease, kidney problems, or are overweight or have certain other health conditions You have a first-degree relative with high blood pressure You are Black Your blood pressure top number is from 120 to 129 mm Hg, or the bottom number is from 70 to 79 mm Hg If the top number is 130 mm Hg or greater or the bottom number is 80 mm Hg or greater, this is considered stage 1 hypertension. Schedule an appointment with your provider to learn how you can lower your blood pressure. Effects of age on blood pressure CHOLESTEROL SCREENING Cholesterol screening should begin at age 35 for men with no known risk factors for coronary heart disease. Repeat cholesterol screening should take place: Every 5 years for men with normal cholesterol levels More often if changes occur in lifestyle (including weight gain and diet) More often if you have diabetes, heart disease, kidney problems, or certain other conditions COLORECTAL CANCER SCREENING If you are under age 45, talk to your provider about getting screened. You may need to be screened if you have a strong family history of colon cancer or polyps. Screening may also be considered if you have risk factors such as a history of inflammatory bowel disease or polyps. If you are age 45 to 75, you should be screened for colorectal cancer. There are several screening tests available: A stool-based fecal occult blood (gFOBT) or fecal immunochemical test (FIT) every year A stool sDNA test every 1 to 3 years Flexible sigmoidoscopy every 5 years or every 10 years with stool testing FIT done every year CT colonography (virtual colonoscopy) every 5 years Colonoscopy every 10 years You may need a colonoscopy more often if you have risk factors for colorectal cancer, such as: Ulcerative colitis A personal or family history of colorectal cancer A history of growths in your colon called adenomatous polyps DENTAL EXAM Go to the dentist once or twice every year for an exam and cleaning. Your dentist will evaluate if you have a need for more frequent visits. DIABETES SCREENING All adults who do not have risk factors for diabetes should be screened starting at age 35 and repeated every 3 years. If you have other risk factors for diabetes, such as a first degree relative with diabetes, overweight or obesity, high blood pressure, prediabetes, or a history of heart disease, you may be tested more often. If you are overweight and have other risk factors, such as high blood pressure and are planning to become , screening is recommended. EYE EXAM Have an eye exam every 2 to 4 years ages 40 to 54 and every 1 to 3 years ages 55 to 64. Your provider may recommend more frequent eye exams if you have vision problems or glaucoma risk. Have an eye exam that includes an examination of your retina (back of your eye) at least every year if you have diabetes. IMMUNIZATIONS Commonly needed vaccines include: Flu shot: get one every year COVID-19 vaccine: ask your provider what is best for you Tetanus-diphtheria and acellular pertussis (Tdap) vaccine: have as one of your tetanus-diphtheria vaccines if you did not receive it as an adolescent Tetanus-diphtheria: have a booster (or Tdap) every 10 years Varicella vaccine: receive 2 doses if you never had chickenpox or the varicella vaccine and were born in 1980 or after Hepatitis B vaccine: receive 2, 3, or 4 doses, depending on your exact circumstances, if you did not receive these as a child or adolescent, until age 59 Shingles (herpes zoster) vaccine: at or after age 50 Ask your provider if you should receive other immunizations, especially if you have certain medical conditions, such as diabetes or are at increased risk for some diseases such as pneumonia. INFECTIOUS DISEASE SCREENING Screening for hepatitis C: all adults ages 18 to 79 should get a one-time test for hepatitis C. Screening for human immunodeficiency virus (HIV): all people ages 15 to 65 should get a one-time test for HIV. Depending on your lifestyle and medical history, you may need to be screened for infections such as syphilis, chlamydia, and other infections. LUNG CANCER SCREENING You should have an annual screening for lung cancer with low-dose computed tomography (LDCT) if: You are age 50 to 80 years AND You have a 20 pack-year smoking history AND You currently smoke or have quit within the past 15 years OSTEOPOROSIS SCREENING If you are age 50 to 64 and have risk factors for osteoporosis, you should discuss screening with your provider. Risk factors can include long-term steroid use, low body weight, smoking, heavy alcohol use, having a fracture after age 50, or a family history of hip fracture or osteoporosis. Osteoporosis PHYSICAL EXAM All adults should visit their provider from time to time, even if they are healthy. The purpose of these visits is to: Screen for diseases Assess risk of future medical problems Encourage a healthy lifestyle Update vaccinations and other preventive care services Maintain a relationship with a provider in case of an illness Your height, weight, and body mass index (BMI) should be checked at every exam. During your exam, your provider may ask you about: Depression and anxiety Diet and exercise Alcohol and tobacco use Safety, such as use of seat belts and smoke detectors Your medicines and risk for interactions PROSTATE CANCER SCREENING If you're 55 through 69 years old, before having the test, talk to your provider about the pros and cons of having a PSA test. Ask about: Whether screening decreases your chance of dying from prostate cancer. Whether there is any harm from prostate cancer screening, such as side effects from testing or overtreatment of cancer when discovered. Whether you have a higher risk of prostate cancer than others. If you are age 55 or younger, screening is not generally recommended. You should talk with your provider about if you have a higher risk for prostate cancer. Risk factors include: Having a family history of prostate cancer (especially a brother or father) Being If you choose to be tested, the PSA blood test is repeated over time (yearly or less often), though the best frequency is not known. Prostate examinations are no longer routinely done on men with no symptoms. Prostate cancer SKIN EXAM Your provider may check your skin for signs of skin cancer, especially if you're at high risk. People at high risk include those who have had skin cancer before, have close relatives with skin cancer, or have a weakened immune system. TESTICULAR EXAM The [place] Preventive Services Task Force (USPSTF) now recommends against performing testicular self-exams. Doing testicular self-exams has been shown to have little to no benefit.
[2023-12-29 12:03] VITALS: BP 148/98; PULSE 100; RESP 14; O2SAT 97; BMI 29.8
[2023-12-29 12:24] VITALS: BP 122/74
== END 2023-12-29 12:42 | disposition home or self-care (01) ==
PROVIDERS: PCP Family Medicine; Visit Provider Nurse Practitioner Family
DX: Z00.00 Encounter for general adult medical examination without abnormal findings (principal); J45.41 Moderate persistent asthma with (acute) exacerbation; H53.8 Other visual disturbances; M72.2 Plantar fascial fibromatosis; F41.9 Anxiety disorder, unspecified; F32.A Depression, unspecified; E78.2 Mixed hyperlipidemia; E55.9 Vitamin D deficiency, unspecified; H61.23 Impacted cerumen, bilateral

== ENCOUNTER → 2023-12-29 11:58 | Outpatient (BNVA) | payer OTHER, SELFPAY | PROVIDERS: PCP Family Medicine; Visit Provider Nurse Practitioner Family | DX: Z00.01 Encounter for general adult medical examination with abnormal findings (principal); J45.41 Moderate persistent asthma with (acute) exacerbation; H53.8 Other visual disturbances; M72.2 Plantar fascial fibromatosis; F41.9 Anxiety disorder, unspecified; F32.A Depression, unspecified; E78.2 Mixed hyperlipidemia; E55.9 Vitamin D deficiency, unspecified; H61.23 Impacted cerumen, bilateral | CPT/HCPCS: 96127; 99212; 99396 ==

== ENCOUNTER 2024-01-02 13:22 | Outpatient (REF) | payer OTHER, SELFPAY ==
--- NOTE | ~2024-01-02 | XR_ITS ---
EXAMINATION: XR CHEST CLINICAL INFORMATION: Wheezing, congestion. Evaluate for pneumonia. COMPARISON: Chest radiograph dated 10/03/2016. TECHNIQUE: 2 views of the chest were obtained. FINDINGS: The lungs are clear. The cardiomediastinal silhouette is normal in size. There is no pleural effusion or pneumothorax. No acute osseous abnormality. XR/XR chest 2V IMPRESSION: No acute cardiopulmonary findings. Electronically signed by: Seth Mar MD 01/02/2024 02:40 PM [facility] [place]
== END 2024-01-02 13:23 | disposition home or self-care (01) ==
LOC: HO.HMGCX 13:22
PROVIDERS: PCP Family Medicine; Visit Provider Nurse Practitioner Family
DX: F41.9 Anxiety disorder, unspecified (principal); F32.A Depression, unspecified
CPT/HCPCS: 71046

== ENCOUNTER 2024-01-07 14:30 | Outpatient (AMB) | payer OTHER, SELFPAY ==
--- NOTE | 2024-01-07 14:34 | A.OFFVIS_ITS ---
Vital Signs 01/07/24 14:35 Height 5 ft 9 in Weight 203 lb 6 oz BMI 30.0 BP 136/98 H Blood Pressure Location Rt brachial Position Sitting Pulse 96 Pulse Source Pulse Oximeter Pulse Oximetry (%) 94 Oxygen Delivery Method Room Air Intake Visit Reasons: Asthma Allergies ciprofloxacin [From CIPRO] Allergy (Severe, Verified 01/07/24 14:36) ANXIETY, INSOMNIA, CONSTIPATION, panic attacks sumatriptan [From IMITREX] Allergy (Severe, Verified 01/07/24 14:36) HALLUCINATIONS, BACK TIGHTENS lurasidone [From Latuda] Adverse Reaction (Severe, Verified 01/07/24 14:36) Suicidal Thoughts HPI HPI Asthma: Details: Royce is a pleasant 43 year old male, never tobacco smoker h/o occasionally vaping THC with underlying asthma. He was referred by PCP for pulmonary evaluation for worsening asthma control. He reports recent URI with chest congestion, wheezing, productive cough and dyspnea over the last month. He was treated with prednisone and azithromycin, initially with good effect however 1.5 weeks after completing symptoms returned. CXR unremarkable. He is using albuterol MDI frequently and suboptimal effect with Advair. He was diagnosed with asthma as a child and has had multiple hospitalizations related to respiratory distress, never requiring intubation. He reports multiple seasonal allergies, using halima PRN, and has a cat at home. He denies recent allergy testing. He denies any occupational exposures. He reports parents with asthma. [facility] Medical History Hemorrhoids with complication Anxiety Depression Sinusitis Surgical History No pertinent past surgical history Family History Mother Asthma Father No problems noted. Brother Skin cancer Social History Housing: House Alcohol intake: current Alcohol intake frequency: a few times a month Patient Tobacco Use Status: Never used Tobacco e-Cigarette/Vaping Use: Former Use (THC VAPE) Second Hand Smoke Exposure: No service: No Current occupational status: disabled Current occupational exposures/hazards: No Cognitive needs: No Hearing needs: No Vision needs: No Review of Systems Const Denies chills, Denies excessive sweating, Denies fever(s), Denies headache(s) and Denies night sweats Eyes Denies dry eyes, Denies irritation and Denies itchy eyes ENT Reports Normal hearing present, Denies headache(s), Denies nasal congestion, Denies nasal discharge, Denies post nasal drip and Denies sore throat Card Denies chest pain, Denies chest pain at rest, Denies chest pain with activity, Denies claudication, Denies leg edema, Denies orthopnea and Denies paroxysmal nocturnal dyspnea Resp Denies pain on inspiration, Denies pain with cough and Denies stridor Musc Denies myalgias Neuro Reports Normal hearing present and Denies headache(s) Endo Denies excessive sweating Luther/Lymph Denies lymphadenopathy Aller/Immun Denies itchy eyes and Denies seasonal rhinorrhea Physical Exam Vital Signs: Last Vital Signs Pulse 96 01/07/24 14:35 BP 136/98 H 01/07/24 14:35 Pulse Ox 94 01/07/24 14:35 Oxygen Delivery Method Room Air 01/07/24 14:35 BMI result Body Mass Index 30.0 Const General: cooperative, healthy appearing, comfortable, no acute distress, well developed and alert Nutritional Appearance: obese Orientation/consciousness: patient oriented x3 Limitations: no limitations HEENT Head: Yes normal to inspection, Yes normocephalic and Yes atraumatic Ears: hearing grossly normal bilaterally and external ears normal Eyes General: appearance normal, both eyes and all related structures Eyelids: Yes eyelids normal Sclerae: sclerae normal EOM: EOMs intact bilaterally Neck Neck: Yes normal visual inspection and Yes no lymphadenopathy Lymphatic: no lymphadenopathy noted Chest Chest palpation & inspection: normal inspection of the chest Resp Effort & Inspection: normal respiratory effort, able to speak in complete sentences, no audible wheezes, Actively coughing (harsh dry ), no stridor, not tachypneic, no tripod positioning and no use of accessory muscles Auscultation: clear to auscultation bilaterally Cardio Jugular venous distension: no JVD Rate: regular rate Rhythm: regular rhythm Skin Other: warm, dry General skin exam: no rashes or lesions noted Neuro General: patient oriented x3 Cranial nerves: Yes Normal hearing present Cognition (Neuro): normal cognition Gait exam (Neuro): Normal gait present Extrem General: Yes normal to inspection, Yes capillary refill normal, Yes no clubbing, cyanosis or edema and Yes no pedal edema Psych Appearance: grossly normal and well kempt Speech and movement: Normal speech and movement present and Clear speech present Affect: normal affect Attitude: cooperative Thought process: Normal thought process present Thought content: Normal thought content present Insight: Good insight present (Psych) Judgement: Good judgement present (Psych) Results Reviewed Results Reviewed: [facility] [address] [place] [place] [address] XRay Report Signed Patient: Royce Hill MR#: [id number] : 1980 Acct:[id number] Age/Sex: 43 / M ADM Date: 01/02/24 [facility] Attending Dr: Carrie DOWNS Ordering Physician: Carrie De Santiago Date of Service: 01/02/24 Procedure(s): XR chest 2V Accession Number(s): [id number] cc: Patrick Haq MD; Carrie De Santiago~ EXAMINATION: XR CHEST CLINICAL INFORMATION: Wheezing, congestion. Evaluate for pneumonia. COMPARISON: Chest radiograph dated 10/03/2016. TECHNIQUE: 2 views of the chest were obtained. FINDINGS: The lungs are clear. The cardiomediastinal silhouette is normal in size. There is no pleural effusion or pneumothorax. No acute osseous abnormality. XR/XR chest 2V IMPRESSION: No acute cardiopulmonary findings. Electronically signed by: Seth Mar MD 01/02/2024 02:40 PM [facility] [place] Dictated By: Seth Mar MD Signed By: <Electronically signed by Seth Mar MD in OV> 01/02/24 1440 Assessment & Plan Assessment & Plan (1) Asthma: Code(s): J45.909 - Unspecified asthma, uncomplicated Category: Medical Qualifiers: Asthma severity: moderate Asthma persistence: persistent Asthma complication type: with acute exacerbation Qualified Code(s): J45.41 - Moderate persistent asthma with (acute) exacerbation (2) Environmental allergies: Code(s): Z91.09 - Other allergy status, other than to drugs and biological substances Category: Medical Plan Will treat bronchitic symptoms with Augmentin. Will switch Advair to Symbicort and he was given a nebulizer in office for home use. Albuterol neb solution prescribed. Will send for PFT and RAST. All questions were answered and patient is in agreement of plan. Will follow up to review results and response to abx or sooner if needed. Orders: Orders Immunoglobulin E 01/07/24. - Other allergy status, other than to drugs and biological substances Resp Allergy Profile Region I 01/07/24 Z. - Other allergy status, other than to drugs and biological substances PFT pulmonary function test 01/07/24 J45.41 - Moderate persistent asthma with (acute) exacerbation Medications: New amoxicillin-pot clavulanate 875-125 mg 1 tab PO Q12H 20 tabs 0RF budesonide-formoterol 160-4.5 mcg/actuation (Symbicort) 2 puffs inhalation Q12H 10.2 grams 3RF albuterol sulfate 2.5 mg (3 mL) inhalation Q4-6H PRN 180 mL 0RF shortness of breath or wheezing Discontinued fluticasone propion-salmeterol 250-50 mcg/dose (Advair Diskus) Discontinued Reason: Patient Completed Course 1 inh inhalation Q12H 30 days 60 ea 0RF Coding Level of Care Code New Pt Level 4 (03650) Diagnoses Moderate persistent asthma with acute exacerbation J45.41 Asthma severity: moderate Asthma persistence: persistent Asthma complication type: with acute exacerbation Environmental allergies
[2024-01-07 14:35] VITALS: BP 136/98; PULSE 96; O2SAT 94
== END 2024-01-07 15:07 | disposition home or self-care (01) ==
PROVIDERS: PCP Family Medicine; Referring Provider Nurse Practitioner Family; Visit Provider Nurse Practitioner Family
DX: J45.41 Moderate persistent asthma with (acute) exacerbation (principal); Z91.09 Other allergy status, other than to drugs and biological substances
CPT/HCPCS: 99204

== ENCOUNTER 2024-01-07 15:10 | Outpatient (REF) | payer OTHER, SELFPAY ==
[2024-01-12 18:58] LABS: Class Alternaria alternata 0; Class Aspergillus fumigatus 0; Class Bermuda Grass 0; Class Birch 0; Class Cat Dander 0; Class Cladosporium herbarum 0; Class Cockroach 0; Class Common Ragweed 0; Class Cottonwood 0; Class Derm. pterony 3; Class Dermatophagoides farinae 3; Class Dog Dander 0; Class Elm 0; Class Maple Box Elder 0; Class Mountain Cedar 0; Class Mouse Urine Protein 0; Class Mugwort 0; Class Oak 0; Class Penicillium crysogenum 0; Class Rough Pigweed 0; Class Sheep Sorrel 0; Class Sycamore 0; Class Timothy Grass 0; Class Walnut Tree 0; Class White Ash 0; Class White Mulberry 0; D001 IgE D pteronyssinus 5.93 kU/L; D002 - IgE D farinae 4.68 kU/L; E001 - IgE Cat Dander <0.10 kU/L; E005 - IgE Dog Dander <0.10 kU/L; E072-IgE Mouse Urine <0.10 kU/L; G002 IgE Bermuda Grass <0.10 kU/L; G006 - IgE Timothy Grass <0.10 kU/L; I006-IgE Cockroach, German <0.10 kU/L; Immunoglobulin E 31 kU/L (<OR=114); M001 IgE Penicillium chrysogen <0.10 kU/L; M002 - IgE Cladosporium herbar <0.10 kU/L; M003 - IgE Aspergillus fumigat <0.10 kU/L; M006 - IgE Alternaria alternat <0.10 kU/L; T001 IgE Maple/Box Elder <0.10 kU/L; T003 IgE Common Silver Birch <0.10 kU/L; T006 - IgE Cedar, Mountain <0.10 kU/L; T007 - IgE Oak, White <0.10 kU/L; T008 IgE Elm, American <0.10 kU/L; T010 - IgE Walnut <0.10 kU/L; T011 - IgE Maple Leaf Sycamore <0.10 kU/L; T014 - IgE Cottonwood <0.10 kU/L; T015 - IgE Ash, White <0.10 kU/L; T070 - IgE White Mulberry <0.10 kU/L; W001 - IgE Ragweed, Short <0.10 kU/L; W006 - IgE Mugwort <0.10 kU/L; W014 IgE Pigweed, Common <0.10 kU/L; W018 IgE Sheep Sorrel <0.10 kU/L
== END 2024-01-07 15:11 | disposition home or self-care (01) ==
LOC: HO.WFDLDS 15:10
PROVIDERS: Visit Provider Nurse Practitioner Family
DX: Z91.09 Other allergy status, other than to drugs and biological substances (principal); J45.41 Moderate persistent asthma with (acute) exacerbation
CPT/HCPCS: 36415; 82785; 86003; 99202

== ENCOUNTER 2024-09-20 08:03 | Outpatient (REF) | payer OTHER, SELFPAY ==
[2024-09-20 12:00] LABS: Cholesterol 226 mg/dL (<200); HDL Cholesterol 38 mg/dL (>40); Triglycerides 150 mg/dL (<150)
[2024-09-20 12:12] LABS: Alanine Aminotransferase 37 U/L (0-40); Albumin Level 4.6 g/dL (3.5-5.0); Alkaline Phosphatase 78 U/L (39-117); Anion Gap 13 (12-20); Aspartate Amino Transferase 37 U/L (5-37); Blood Urea Nitrogen 11 mg/dL (9-16); Calcium 9.1 mg/dL (8.4-10.2); Carbon Dioxide 24 mmol/L (22-29); Chloride 105 mmol/L (96-108); Cholesterol 225 mg/dL (<200); Estimated Glomerular Filt Rate > 60; HDL Cholesterol 39 mg/dL (>40); Potassium 3.7 mmol/L (3.3-5.1); Sodium 138 mmol/L (135-145); Total Protein 7.5 g/dL (6.5-8.0); Triglycerides 155 mg/dL (<150)
[2024-09-20 14:41] LABS: Microalbum/Creatinine Ratio Ur 75.4 ug/mg cr (<30)
== END 2024-09-20 08:04 | disposition home or self-care (01) ==
LOC: HO.WFDLDS 08:03
PROVIDERS: Family Medicine; Referring Provider Nurse Practitioner Family; Visit Provider Nurse Practitioner Family
DX: Z00.00 Encounter for general adult medical examination without abnormal findings (principal); Z91.09 Other allergy status, other than to drugs and biological substances; E78.5 Hyperlipidemia, unspecified; E55.9 Vitamin D deficiency, unspecified
CPT/HCPCS: 36415; 80053; 80061; 82043; 82306; 82570; 82785

== ENCOUNTER 2024-09-23 13:26 | Outpatient (AMB) | payer OTHER, SELFPAY ==
--- OUTSIDE RECORDS SUMMARY | 2024-09-23 13:31 | XMS_ITS | Clinical Summary ---
Author Organization [employer] Address [address] [place] [address] Care Team Providers Care Project Assistant Name Role Phone Unavailable Primary Care Provider Unavailabl e Allergies Active Allergy Reactions Criticality Noted Date Comments Sumatriptan 08/26/2023 Medications albuterol 108 (90 Base) MCG/ACT inhaler INHALE 2 PUFFS INTO THE LUNGS EVERY 6 HOURS 4 Active amitriptyline (Elavil) 50 MG tablet Take 50 mg by mouth Once per day. 4 Active amLODIPine (Norvasc) 5 MG tablet Take 5 mg by mouth Once per day. 4 Active escitalopram (Lexapro) 10 MG tablet Take 10 mg by mouth Once per day. 4 Active Wixela Inhub 250-50 MCG/ACT aerosol powder INHALE 1 PUFF BY MOUTH EVERY 12 HOURS X 30 DAYS 3 Active hydrocortisone (Anusol-HC) 2.5 % rectal cream APPLY RECTALLY 2 TIMES A DAY NEEDED FOR HEMORRHOIDS 4 Active lamoTRIgine (LaMICtal) 200 MG tablet 4 Active LORazepam (Ativan) 0.5 MG tablet Take 0.5 mg by mouth if needed in the morning and at bedtime for anxiety. 4 Active metoprolol succinate XL (Toprol-XL) 50 MG 24 hr tablet TAKE 1/2 TABLET ORALLY EVERY 12 HOURS 4 Active prazosin (Minipress) 1 MG capsule TAKE 1 CAPSULE BY MOUTH EVERYDAY AT BEDTIME 4 Active zolpidem (Ambien) 5 MG tablet Take 5 mg by mouth at bedtime. Active Social History Tobacco Use Types Packs/Day Years Used Date Smoking Tobacco: Never Smokeless Tobacco: Never Tobacco Cessation:Counseling Given: Not Answered Sex and Gender Information Value Date Recorded Sex Assigned at Male 12/17/2021 10:27 AM EDT Legal Sex Male 10:27 AM EDT Gender Identity Male 12/17/2021 10:27 AM EDT Sexual Orientation Choose not to disclose 2021 10:27 AM EDT Last Filed Vital Signs Vital Sign Reading Time Taken Comments Blood Pressure 167/101 09/15/2023 1:56 PM EDT Pulse 99 09/15/2023 1:56 PM EDT Temperature - - Respiratory Rate - - Oxygen Saturation - - Inhaled Oxygen Concentration - - Weight - - Height - - Body Mass Index - - Plan of Treatment Health Maintenance Due Date Last Done Comments Depression Screening 1980 HIV Screening 1980 Lipid Panel 1980 SDOH Screening 1980 Disability Screening 1982 Alcohol/Substance Use Screening 1994 Family Planning (PISQ) 1997 HPV Vaccines (1 - Male 3-dos e series) 1997 Hepatitis C Screening 2000 Hepatitis B Vaccines (1 of 3 - 19+ 3-dose series) 2001 COVID-19 Vaccine (2023-2 5 season) 2023 08/12/2020, 07/22/2020 Dental Oral Exam 02/27/2024 08/26/2023 Dental Prophylaxis 03/18/2024 09/15/2023 Dental X-Ray: Bitewings 08/26/2024 08/26/2023 Tobacco Screening 09/14/2024 09/15/2023 Influenza Vaccine (#1) 2024 03/29/2019 Dental X-Ray: Full Mouth 08/26/2026 08/26/2023 DTaP/Tdap/Td Vaccines (2 - T d or Tdap) 09/25/2027 09/24/2017 Zoster Vaccines (1 of 2) 2032 RSV Patients and Patients Aged 60 years or older (1 - 1-dose 75+ series) 2057 Pneumococcal Vaccine: Pediatrics (0 to 5 Years) and At-Risk Patients (6 to 49) Years Aged Out 01/08/2019 No longer eligible b ased on patient's age to complete this topic HIB Vaccines Aged Out No longer eligi ble based on patient's age to complete this topic Hepatitis A Vaccines Aged Out No long er eligible based on patient's age to complete this topic IPV Vaccines Aged Out No longer eligi ble based on patient's age to complete this topic Meningococcal B Vaccine Aged Out No l onger eligible based on patient's age to complete this topic Meningococcal Vaccine Aged Out No [place]xt[place] alisha eligible based on patient's age to complete this topic RSV under 20 months Aged Out No longe r eligible based on patient's age to complete this topic Rotavirus Vaccines Aged Out No longer eligible based on patient's age to complete this topic Procedures Procedure Name Priority Date/Time Associated Diagnosis Comments PROPHYLAXIS - ADULT Routine 09/15/2023 2 :00 PM EDT INTRAORAL - COMPLETE SERIES OF RADIOGRAPHIC IMAGES Routine 08/26/2023 3:00 PM EDT COMPREHENSIVE ORAL EVALUATION - NEW OR ESTABLISHED PATIENT Routine 08/26/2023 3:00 PM EDT from Last 3 Months or Most Recently Relevant to Health Maintenance Insurance [facility]
--- NOTE | 2024-09-23 13:33 | A.OFFPC_ITS ---
Vital Signs 09/23/24 13:39 Height 5 ft 9 in Weight 199 lb 3 oz BMI 29.4 BP 124/88 Blood Pressure Location Rt brachial Position Sitting Respiration 14 Pulse 89 Pulse Source Pulse Oximeter Temp 97.7 F Temp Source Temporal Artery Scan Pulse Oximetry (%) 95 Oxygen Delivery Method Room Air Intake Visit Reasons: 6 mo routine fu chronic cond. labs 1 wk before Intake Note: Royce presents in the office today for a 6 month follow up. Allergies ciprofloxacin (From CIPRO) Allergy (Severe, Verified 09/23/24 13:36) ANXIETY, INSOMNIA, CONSTIPATION, panic attacks sumatriptan (From IMITREX) Allergy (Severe, Verified 09/23/24 13:36) HALLUCINATIONS, BACK TIGHTENS lurasidone (From Latuda) Adverse Reaction (Severe, Verified 09/23/24 13:36) Suicidal Thoughts Medication List - Last Reconciled 09/23/24 by Patrick Haq MD albuterol sulfate 90 mcg/actuation 2 puffs inhalation Q6H albuterol sulfate 2.5 mg (3 mL) inhalation Q4-6H PRN amitriptyline 50 mg PO DAILY 90 days amlodipine 5 mg PO DAILY 90 days bisacodyl (Dulcolax (bisacodyl)) 10 mg KS DAILY PRN budesonide-formoterol 160-4.5 mcg/actuation (Symbicort) 2 puffs inhalation Q12H cholecalciferol (vitamin D3) 50 mcg PO DAILY docusate sodium (Colace) 200 mg (2 x 100 mg) PO BEDTIME escitalopram oxalate 5 mg PO DAILY fexofenadine (Brittni Allergy) 60 mg PO BID 90 days fluticasone propionate 50 mcg/actuation 1 spray intranasal DAILY 30 days hydrocortisone 2.5% 1 appl [place] BID PRN ibuprofen 800 mg PO TID lamotrigine 400 mg PO DAILY lorazepam 0.5 mg PO BEDTIME metoprolol succinate ER 25 mg (1/2 x 50 mg) PO Q12H 30 days polyethylene glycol 3350 (Miralax) 17 grams PO DAILY prazosin 2 mg PO BEDTIME simethicone (Gas Relief (simethicone)) 80 mg PO BID-QID PRN 30 days zolpidem 5 mg PO BEDTIME Tobacco use date assessed: 09/23/24 Dental Screening Dental Screen Date: 09/23/24 Did you have a dental visit in the last 12 months?: No Did you have a dental problem in the last 6 months where you did not have access to dental care?: No Was dental information given to patient?: Patient has dentist HPI 6 mo routine fu chronic cond. labs 1 wk before HPI Details 43 y/o male presents to f/u chronic cond itions. Blood pressure today 124/88, 89p. He is on metoprolol 25mg, amlodipne 5mg daily. Pt reports issues with seasonal allergies. He has been using brittni for relief. Labs drawn 09/20/24. Reviewed labs with pt. Triglycerides 150. TC 226. LDL 158. HDL low at 38. Ongoing complaints of constipation. PHQ-9 8, CHELE-7 7 today. HPI Comments History of Present Illness Details Documentation assistance for Patrick Haq MD, was provided by Bharat Sunshine,[employer] on 09/23/2024 at 1:55 PM EST. I, Dr. Haq, have read, observed, and verified documentation. [facility] Medical History Hemorrhoids with complication Anxiety Depression Sinusitis Surgical History No pertinent past surgical history Family History Mother Asthma Father No problems noted. Brother Skin cancer Social History (Updated 09/23/24 @ 13:39 by Carley Tobar MA) Housing: House Alcohol intake: former Patient Tobacco Use Status: Never used Tobacco e-Cigarette/Vaping Use: Former Use (THC VAPE) Second Hand Smoke Exposure: No Substance Use Type: Marijuana service: No Current occupational status: disabled Current occupational exposures/hazards: No Cognitive needs: No Hearing needs: No Vision needs: No Questionnaire PHQ-9 Over the last 2 weeks, how often have you been bothered by any of the following problems? 1. Little interest or pleasure in doing things: several days 2. Feeling down, depressed, or hopeless: several days 3. Trouble falling or staying asleep, or sleeping too much: several days 4. Feeling tired or having little energy: several days 5. Poor appetite or overeating: several days 6. Feeling bad about yourself - or that you are a failure or have let yourself or your family down: several days 7. Trouble concentrating on things, such as reading the newspaper or watching television: several days 8. Moving or speaking so slowly that other people could have noticed. Or the opposite - being so fidgety or restless that you have been moving around a lot more than usual: several days 9. Thoughts that you would be better off or of hurting yourself in some way: not at all Total score: 8 Depression Screening Interpretation: Positive Depression Screening Follow-up: In treatment Depression Screening Done: Yes 30818 - PHQ-9 Billing: Yes Source: Developed by Drs. Samy Buckley, Jennifer Muñoz, Elvin Foster and colleagues, with an educational bernie from [employer]. Thrive Questionnaire Date Thrive assessed: 09/23/24 I am a: Patient What is your living situation today?: I have a steady place to live Within the past 12 months, did the food you bought not last and you didn't have the money to get more?: Sometimes True Within the past 12 months, did you worry whether your food would run out before you got money to buy more?: Sometimes True Do you have trouble paying for medicines?: No Do you have trouble getting transportation to medical appointments?: No Do you have trouble paying your heating and electricity bill?: No Do you have trouble taking care of your child, family member or friend?: No Do you have trouble with day-to-day activities such as bathing, preparing meals, shopping, managing finances, etc.?: No Are you currently unemployed and looking for a job?: I choose not to answer this question Are you interested in more education?: Yes Please select the resources that you would like help with: None Currently or been in a relationship where the following occur: I choose not to answer THRIVE Score: 2 AUDIT C Alcohol Use Questionnaire (AUDIT-C) 1. How often do you have a drink containing alcohol?: Never 3. How often do you have six or more drinks on one occasion?: Never Total Score: 0 CHELE-7 AMB Questionnaire CHELE-7 Date CHELE - 7 assessed: 09/23/24 Feeling nervous, anxious, or on edge: 1 = Several days Not being able to stop or control worryin = Several days Worrying too much about different things: 1 = Several days Trouble relaxin = More than half the days Being so restless that it is hard to sit still: 1 = Several days Becoming easily annoyed or irritable: 0 = Not at all Feeling afraid as if something awful might happen: 1 = Several days Total CHELE-7 score (0-4 normal; 5-9 mild; 10-14 moderate; 15-21 severe): 7 Source: Developed by Drs. Samy Buckley, Jennifer Muñoz, Elvin Foster and colleagues, with an educational bernie from [employer]. CHELE-7 Assessment Billing CHELE-7 Assessment Tool: CHELE-7 Assessment 22177 Review of Systems Const Denies chills, Denies fatigue, Denies fever(s), Denies headache(s) and Denies weakness ENT Denies dizziness and Denies headache(s) Card Denies dyspnea Resp Denies cough, Denies dyspnea, Denies wheezing and Denies other (shortness of breath) Musc Denies numbness and Denies tingling Neuro Denies dizziness, Denies headache(s), Denies numbness, Denies tingling and Denies weakness Psych Reports anxiety and Reports depression Endo Denies fatigue Aller/Immun Denies wheezing Physical exam (Primary Care) Vital Signs: Last Vital Signs Temp 97.7 F 09/23/24 13:39 Pulse 89 09/23/24 13:39 Resp 14 09/23/24 13:39 BP 124/88 09/23/24 13:39 Pulse Ox 95 09/23/24 13:39 Oxygen Delivery Method Room Air 09/23/24 13:39 BMI result Body Mass Index 29.4 Tobacco/Smoking Status: Tobacco use Status Tobacco use date assessed 09/23/24 09/23/24 13:42 Patient Tobacco Use Status Never used Tobacco 09/23/24 13:39 e-Cigarette/Vaping Use Former Use (THC VAPE) 09/23/24 13:39 PHQ-9: PHQ-9 Score PHQ-9: Total score 8 09/23/24 13:35 Depression Screening Interpretation: Positive Depression Screening Follow-up: In treatment Thrive Assessment: Date of Thrive Assessment Date Thrive assessed 09/23/24 09/23/24 13:35 Currently or been in a relationship where the following occur: I choose not to answer Const General: well developed; No acute distress Nutritional Appearance: well nourished Orientation/consciousness: patient oriented x3 HENMT Head: Yes normocephalic and Yes atraumatic Eyes General: appearance normal, both eyes and all related structures Pupils: Equal, round and reactive pupils present EOM: EOMs intact bilaterally Resp Effort & Inspection: normal respiratory effort Neuro General: patient oriented x3 and gait normal Cranial nerves: Yes Equal, round and reactive pupils present Psych Affect: normal affect Coding Level of Care Code Est Pt Level 4 (94890) Diagnoses HTN (hypertension) I10 Seasonal allergies J30.2 Anxiety and depression F41.9; F32.A Moderate persistent asthma with acute exacerbation J45.41 Asthma complication type: with acute exacerbation Asthma persistence: persistent Asthma severity: moderate Elevated LDL cholesterol level E78.00 Constipation K59.00 Additional Codes CHELE-7 Assessment Billing - CHELE-7 Assessment Tool: CHELE-7 Assessment 70578 ([id number]) PHQ-9 - 06058 - PHQ-9 Billing: Yes ([id number]) Assessment & Plan Assessment & Plan (1) HTN (hypertension): Code(s): I10 - Essential (primary) hypertension Category: Medical Plan: Blood pressure is controlled. Goal is less than 140/90 Continue current medication (2) Seasonal allergies: Code(s): J30.2 - Other seasonal allergic rhinitis Category: Medical Plan: Significant allergies and also trigger for his asthma He can increase his Brittni dose Continue nasal steroid Nasal saline throughout his day Will give him a script for Singulair (3) Anxiety and depression: Code(s): F41.9 - Anxiety disorder, unspecified; F32.A - Depression, unspecified Category: Medical Plan: Followed by psych med provider Stable (4) Asthma: Code(s): J45.909 - Unspecified asthma, uncomplicated Category: Medical Qualifiers: Asthma complication type: with acute exacerbation Asthma persistence: persistent Asthma severity: moderate Qualified Code(s): J45.41 - Moderate persistent asthma with (acute) exacerbation Plan: As above, control allergy triggers Continue using inhaled meds as prescribed (5) Elevated LDL cholesterol level: Code(s): E78.00 - Pure hypercholesterolemia, unspecified Category: Medical Plan: Longstanding elevation of LDL cholesterol Recommended statin but patient wants to try lifestyle changes We discussed working on lifestyle changes and following up in about 3 months We discussed that if he is able to make a significant improvement we can consider a non statin such as Zetia or ongoing lifestyle changes. Otherwise should consider statin. Patient understands (6) Constipation: Code(s): K59.00 - Constipation, unspecified Category: Medical Plan: Patient says he is not drinking enough water Increase hydration Can you soluble fiber Simethicone for bloating Laxatives as last resort and if still not improving will refer to GI Orders: Orders LDL Cholesterol Direct Today E78.00 - Pure hypercholesterolemia, unspecified, E78.5 - Hyperlipidemia, unspecified Comprehensive [place]. Panel Fast Today E78.00 - Pure hypercholesterolemia, unspecified, Z00.00 - Encounter for general adult medical examination without abnormal findings Medications: New simethicone (Gas Relief (simethicone)) 80 mg PO BID-QID PRN 120 tabs 3RF abdominal distention 30 days montelukast 10 mg PO QPM 90 tabs 3RF 90 days J30.2 - Other seasonal allergic rhinitis, J45.41 - Moderate persistent asthma with (acute) exacerbation Refilled fexofenadine (Brittni Allergy) 60 mg PO BID 180 tabs 1RF allergic symptoms 90 days J30.9 - Allergic rhinitis, unspecified, J45.909 - Unspecified asthma, uncomplicated
[2024-09-23 13:39] VITALS: BP 124/88; PULSE 89; RESP 14; TEMP 36.5; O2SAT 95; BMI 29.4
== END 2024-09-23 14:20 | disposition home or self-care (01) ==
LOC: HO.HMCFM 13:27
PROVIDERS: PCP Family Medicine; Visit Provider Family Medicine
DX: I10 Essential (primary) hypertension (principal); J30.2 Other seasonal allergic rhinitis; F41.9 Anxiety disorder, unspecified; F32.A Depression, unspecified; J45.41 Moderate persistent asthma with (acute) exacerbation; E78.00 Pure hypercholesterolemia, unspecified; K59.00 Constipation, unspecified

== ENCOUNTER → 2024-09-23 13:26 | Outpatient (BNVA) | payer OTHER, SELFPAY | PROVIDERS: PCP Family Medicine; Visit Provider Family Medicine | DX: I10 Essential (primary) hypertension (principal); J30.2 Other seasonal allergic rhinitis; F41.9 Anxiety disorder, unspecified; F32.A Depression, unspecified; J45.41 Moderate persistent asthma with (acute) exacerbation; E78.00 Pure hypercholesterolemia, unspecified; K59.00 Constipation, unspecified; E78.5 Hyperlipidemia, unspecified | CPT/HCPCS: 96127; 99212 ==